=== PATIENT | male | born 1945 ===

== ENCOUNTER 2016-05-30 00:11 | Emergency (ER) | payer MEDICARE, OTHER ==
[2016-05-30 00:12] VITALS: BMI 19.3
[2016-05-30 00:16] VITALS: BP 160/104; PULSE 70; RESP 20; TEMP 98; O2SAT 95
[2016-05-30 01:21] LABS: BASO # 0.1 K/uL (0.0-0.2); BASO % 0.8 % (0.0-2.0); EOS # 0.3 K/uL (0.0-0.7); EOS % 4.1 % (0.0-4.0); HEMATOCRIT 37.5 % (35.0-51.0); LYMPH # 1.9 K/uL (1.0-4.3); LYMPH % 25.7 % (20.0-40.0); MEAN CELL VOLUME 99.8 fl (80.0-94.0); MEAN CORPUSCULAR HEMOGLOBIN 33.2 pg (27.0-31.0); MEAN CORPUSCULAR HGB CONC 33.2 g/dL (33.0-37.0); MEAN PLATELET VOLUME 7.7 fl (7.2-11.7); MONO # 0.7 K/uL (0.0-0.8); MONO % 9.9 % (0.0-10.0); NEUT # 4.4 K/uL (1.8-7.0); NEUT % 59.5 % (50.0-75.0); RED CELL DISTRIBUTION WIDTH 14.6 % (11.5-14.5); WHITE BLOOD COUNT 7.4 K/uL (4.8-10.8)
[2016-05-30 01:32] LABS: ALB/GLOB RATIO 1.3 (1.0-2.1); BILIRUBIN,TOTAL 0.7 mg/dl (0.2-1.3); CALCIUM 9.6 mg/dL (8.4-10.2); TOTAL PROTEIN 7.8 G/DL (6.3-8.2)
--- NOTE | 2016-05-30 01:38 | ED PDOC ---
HPI: Abdomen Time Seen by Provider: 05/30/16 00:23 Chief Complaint (Nursing): Abdominal Pain Chief Complaint (Provider): abdominal pain History Per: Patient History/Exam Limitations: no limitations Onset/Duration Of Symptoms: Hrs (x2) Current Symptoms Are (Timing): Gone Now Severity: Mild Location Of Pain/Discomfort: Other (left sided) Associated Symptoms: denies: Fever, Nausea, Vomiting, Diarrhea, Chest Pain Additional Complaint(s): Patient is a 70 year old male, who has a history of dementia, presents to the ED complaining of left sided abdominal pain x2 hours ago. Pain has resolved since arrival to ED. Patient has visited the ED multiple times for similar complaints. Denies nausea, vomiting, diarrhea, cough, shortness of breath, or chest pain. PMD: none Past Medical History Reviewed: Historical Data, Nursing Documentation, Vital Signs Vital Signs: Last Vital Signs Temp 98 F 05/30/16 00:13 Pulse 70 05/30/16 00:13 Resp 20 05/30/16 00:13 BP 160/104 H 05/30/16 00:13 Pulse Ox 95 05/30/16 02:41 - Medical History PMH: Anemia, Asthma, CAD, Dementia, Diverticulitis, Gastritis, HTN, Hypercholesterolemia, Chronic Kidney Disease Comment Only: CHF (?) - Surgical History Surgical History: Hernia Repair (Ventral and inguinal) - Family History Family History: States: No Known Family Hx - Social History Current smoker - smoking cessation education provided: No - Home Medications Home Medications: Ambulatory Orders Medication Instructions Recorded Donepezil HCl 5 mg PO DAILY 05/04/15 Folic Acid 1 mg PO DAILY 05/04/15 Pravastatin Sodium [Pravachol] 40 mg PO DAILY 05/04/15 Dexlansoprazole [Dexilant] 60 mg PO DAILY 03/03/16 Multivit, Iron, Min #5, FA 1 tab PO DAILY 03/03/16 [Strovite Forte Caplet] Aspirin 81 mg PO DAILY #14 tab 03/06/16 Carvedilol [Coreg] 3.125 mg PO Q12 #14 tab 03/06/16 Dicyclomine [Bentyl] 20 mg PO Q12 PRN #20 tab 05/30/16 - Allergies Allergies/Adverse Reactions: Allergies Allergy/AdvReac Type Severity Reaction Status Date / Time Penicillins Allergy RASH Verified 05/04/15 08:12 Review of Systems ROS Statement: Except As Marked, All Systems Reviewed And Found Negative Constitutional: Negative for: Fever Cardiovascular: Negative for: Chest Pain Respiratory: Negative for: Cough, Shortness of Breath Gastrointestinal: Negative for: Nausea, Vomiting, Abdominal Pain (resolved), Diarrhea Physical Exam - Reviewed Nursing Documentation Reviewed: Yes Vital Signs Reviewed: Yes - Physical Exam Appears: Positive for: Well, Non-toxic, No Acute Distress Head Exam: Positive for: ATRAUMATIC, NORMAL INSPECTION, NORMOCEPHALIC Skin: Positive for: Normal Color, Warm, DRY Eye Exam: Positive for: EOMI, Normal appearance, PERRL Neck: Positive for: Normal, Painless ROM Cardiovascular/Chest: Positive for: Regular Rate, Rhythm. Negative for: Gallop , Murmur Respiratory: Positive for: Normal Breath Sounds. Negative for: Accessory Muscle Use, Rhonchi, Respiratory Distress Gastrointestinal/Abdominal: Positive for: Normal Exam, Soft. Negative for: Tenderness, Mass, Distended, Guarding, Rebound Extremity: Positive for: Normal ROM Neurologic/Psych: Positive for: Alert, Oriented - Laboratory Results Result Diagrams: 05/30/16 00:30 05/30/16 00:30 - ECG O2 Sat by Pulse Oximetry: 95 (RA) Pulse Ox Interpretation: Normal Medical Decision Making Medical Decision Making: Time: 00:25 Impression: 70 y/o male with resolved abdominal pain Plan: CT is not indicated at this time given patients multiple visits and is currently asymptomatic EKG UDip PTT/PT UA patient remains asymptomatic. Labs reviewed and are within normal limits except creatinine, which is normal for the patient. Patient advised to follow up with PMD for kidney function. Discussed results and plan with patient who expresses understanding. Counseling was provided regarding the diagnosis and prognosis. All questions answered and there is agreement with the plan to discharge home with instructions. Patient stable for discharge. Return if symptoms persist or worsen. Scribe Attestation: Documented by Luis Felix acting as a scribe for León Coffey MD. Scribjuventino Attestation: All medical record entries made by the Scribe were at my direction and personally dictated by me. I have reviewed the chart and agree that the record accurately reflects my personal performance of the history, physical exam, medical decision making, and the department course for this patient. I have also personally directed, reviewed, and agree with the discharge instructions and disposition. Disposition - Clinical Impression Clinical Impression: Abdominal pain, LUQ - Patient ED Disposition Is Patient to be Admitted: No Counseled Patient/Family Regarding: Studies Performed, Diagnosis, Need For Followup - Disposition Referrals: Adriana Tobias MD [Primary Care Provider] - Disposition: Routine/Home Disposition Time: 02:15 Condition: STABLE Prescriptions: Dicyclomine [Bentyl] 20 mg PO Q12 PRN #20 tab PRN Reason: abdominal pain Instructions: Abdominal Pain (ED) Print Language: GEORGIAN
[2016-05-30 01:43] LABS: PARTIAL THROMBOPLASTIN TIME 29.7 SECONDS (23.3-32.5)
[2016-05-30 02:41] LABS: RBC URINE < 1 /hpf (0-3); URINE BILIRUBIN NEGATIVE (NEGATIVE); URINE BLOOD NEGATIVE (NEGATIVE); URINE COLOR STRAW (YELLOW); URINE GLUCOSE (UA) NEG (Normal); URINE KETONE NEGATIVE (NEGATIVE); URINE LEUKOCYTE ESTERASE NEG Leu/uL (Negative); URINE PROTEIN NEGATIVE (NEGATIVE); URINE UROBILINOGEN 0.2-1.0 mg/dL (0.2-1.0); WBC URINE < 1 /hpf (0-5)
--- NOTE | 2016-05-30 19:08 | CARD ---
APPROVED REPORT EKG Measurement Heart [id number] <Conclusion> Normal sinus rhythm Right bundle branch block Minimal voltage criteria for LVH, may be normal variant Abnormal ECG
== END 2016-05-30 02:50 | disposition home or self-care (01) ==
LOC: H.ER 00:11
DX: R10.12 Left upper quadrant pain (principal); E78.00 Pure hypercholesterolemia, unspecified; F03.90 Unspecified dementia, unspecified severity, without behavioral disturbance, psychotic disturbance, mood disturbance, and anxiety; I12.9 Hypertensive chronic kidney disease with stage 1 through stage 4 chronic kidney disease, or unspecified chronic kidney disease; I50.9 Heart failure, unspecified; Z79.82 Long term (current) use of aspirin; J45.909 Unspecified asthma, uncomplicated

== ENCOUNTER 2016-08-29 22:20 | Emergency (ER) | payer MEDICARE, OTHER ==
[2016-08-29 22:32] VITALS: BMI 32.3
[2016-08-29 22:34] VITALS: RESP 16; O2SAT 95
--- NOTE | 2016-08-29 23:36 | ED PDOC ---
HPI: Abdomen Time Seen by Provider: 08/29/16 22:36 Chief Complaint (Nursing): Abdominal Pain Chief Complaint (Provider): Abdominal Pain History Per: Patient History/Exam Limitations: no limitations Onset/Duration Of Symptoms: Days (x2) Outside of [place] travel?: No Current Symptoms Are (Timing): Still Present Location Of Pain/Discomfort: LUQ, LLQ Associated Symptoms: Constipation. denies: Fever, Nausea, Vomiting, Loss Of Appetite Additional Complaint(s): 71 year old male presents to ED with complaints of left sided abdominal pain x2 days and has a past medical history of HTN, gout, CHF, and chronic constipation. (+) constipation, (-) nausea, vomiting, decreased appetite, or fever. Patient notes that he has had this complaint multiple times in the past and has had many CTs taken for this. PCP: Adriana Tobias Past Medical History Reviewed: Historical Data, Nursing Documentation, Vital Signs Vital Signs: Last Vital Signs Temp 97.9 F 08/29/16 22:32 Pulse 74 08/29/16 22:32 Resp 16 08/29/16 22:32 BP 125/80 08/29/16 22:32 Pulse Ox 95 08/29/16 23:42 - Medical History PMH: Anemia, CAD, Dementia, Diverticulitis, Gastritis, HTN, Chronic Kidney Disease Denies: No Chronic Diseases, Asthma, Hypercholesterolemia Comment Only: CHF (?) - Surgical History Surgical History: Hernia Repair (Ventral and inguinal) Denies: No Surg Hx - Family History Family History: States: Unknown Family Hx - Social History Alcohol: Occasional - Home Medications Home Medications: Ambulatory Orders Medication Instructions Recorded Donepezil HCl 5 mg PO DAILY 05/04/15 Folic Acid 1 mg PO DAILY 05/04/15 Pravastatin Sodium [Pravachol] 40 mg PO DAILY 05/04/15 Dexlansoprazole [Dexilant] 60 mg PO DAILY 03/03/16 Multivit,Iron,Min 5/Folic Acid 1 tab PO DAILY 03/03/16 [Strovite Forte Caplet] Aspirin 81 mg PO DAILY #14 tab 03/06/16 Carvedilol [Coreg] 3.125 mg PO Q12 #14 tab 03/06/16 Dicyclomine [Bentyl] 20 mg PO Q12 PRN #20 tab 05/30/16 Polyethylene Glycol 3350 [Miralax] 17 g PO QAM PRN #7 pkg 08/30/16 - Allergies Allergies/Adverse Reactions: Allergies Allergy/AdvReac Type Severity Reaction Status Date / Time Penicillins Allergy RASH Verified 05/04/15 08:12 Review of Systems ROS Statement: Except As Marked, All Systems Reviewed And Found Negative Constitutional: Negative for: Fever Gastrointestinal: Positive for: Abdominal Pain (left sided abdominal pain), Constipation. Negative for: Nausea, Vomiting, Other (decreased appetite) Physical Exam - Reviewed Nursing Documentation Reviewed: Yes Vital Signs Reviewed: Yes - Physical Exam Appears: Positive for: Non-toxic, No Acute Distress Head Exam: Positive for: ATRAUMATIC Skin: Positive for: Normal Color, Warm, Dry Eye Exam: Positive for: Normal appearance ENT: Positive for: Normal ENT Inspection Neck: Positive for: Normal, Painless ROM Cardiovascular/Chest: Positive for: Regular Rate, Rhythm. Negative for: Murmur Respiratory: Positive for: Normal Breath Sounds. Negative for: Respiratory Distress Gastrointestinal/Abdominal: Positive for: Distended (mild abdominal distension) . Negative for: Normal Exam Back: Positive for: Normal Inspection Extremity: Positive for: Normal ROM. Negative for: Deformity Neurologic/Psych: Positive for: Alert, Oriented. Negative for: Motor/Sensory Deficits - Laboratory Results Result Diagrams: 08/29/16 23:38 08/29/16 23:38 - ECG O2 Sat by Pulse Oximetry: 95 (RA) Pulse Ox Interpretation: Normal Medical Decision Making Medical Decision Makin Initial impression: abdominal pain in setting of chronic constipation Initial plan: * EKG * Labs * Lipase * XR ABD W/ CHEST * Bentyl 20mg PO * UA * Re-eval 0000 Patient states that his symptoms have completely resolved after a bowel movement. Upon re-evaluation, patient is feeling much better and is medically stable and ready for discharge. Counseling has been provided and patient is in agreement. Return if symptoms persist or acutely worsen. XR ABD W/ CHEST Normal chest Normal abdomen Scribe Attestation: Documented by Yolanda Grove acting as a scribe for León Coffey MD. Scribe Attestation: All medical record entries made by the Scribe were at my direction and personally dictated by me. I have reviewed the chart and agree that the record accurately reflects my personal performance of the history, physical exam, medical decision making, and the department course for this patient. I have also personally directed, reviewed, and agree with the discharge instructions and disposition. Disposition - Clinical Impression Clinical Impression: Abdominal pain, Constipation - Disposition Disposition: Routine/Home Disposition Time: 00:00 Condition: STABLE Prescriptions: Polyethylene Glycol 3350 [Miralax] 17 g PO QAM PRN #7 pkg PRN Reason: Constipation Instructions: Constipation (ED) Print Language: SERBIAN
[2016-08-29 23:41] LABS: BASO # 0.1 K/uL (0.0-0.2); BASO % 0.9 % (0.0-2.0); EOS # 0.2 K/uL (0.0-0.7); EOS % 2.4 % (0.0-4.0); HEMOGLOBIN 12.6 g/dL (12.0-18.0); LYMPH # 1.4 K/uL (1.0-4.3); LYMPH % 17.1 % (20.0-40.0); MEAN CELL VOLUME 100.1 fl (80.0-94.0); MEAN CORPUSCULAR HEMOGLOBIN 32.9 pg (27.0-31.0); MEAN CORPUSCULAR HGB CONC 32.8 g/dL (33.0-37.0); MEAN PLATELET VOLUME 7.2 fl (7.2-11.7); MONO # 0.9 K/uL (0.0-0.8); MONO % 10.4 % (0.0-10.0); NEUT # 5.7 K/uL (1.8-7.0); NEUT % 69.2 % (50.0-75.0); NRBC % 0.1 % (0.0-0.0); RBC 3.82 Mil/uL (4.40-5.90); WHITE BLOOD COUNT 8.3 K/uL (4.8-10.8)
[2016-08-29 23:54] LABS: ALB/GLOB RATIO 1.2 (1.0-2.1); ALBUMIN 4.1 g/dL (3.5-5.0); ALT/SGPT 35 U/L (21-72); AST/SGOT 35 U/L (17-59); BLOOD UREA NITROGEN 21 mg/dl (9-20); CALCIUM 9.9 mg/dL (8.4-10.2); GFR AFRICAN-AMERICAN > 60; GFR NON-AFRICAN AMERICAN 54; LIPASE 167 U/L (23-300)
[2016-08-29 23:56] LABS: SQUAMOUS EPITHIAL < 1 /hpf (0-5); URINE BACTERIA RARE (<OCC); URINE BILIRUBIN NEGATIVE (NEGATIVE); URINE BLOOD NEGATIVE (NEGATIVE); URINE CLARITY CLEAR (Clear); URINE COLOR YELLOW (YELLOW); URINE GLUCOSE (UA) NEG (Normal); URINE LEUKOCYTE ESTERASE NEG Leu/uL (Negative); URINE NITRATE NEGATIVE (NEGATIVE); URINE PROTEIN NEGATIVE (NEGATIVE); URINE UROBILINOGEN 0.2-1.0 mg/dL (0.2-1.0)
[2016-08-30 04:58] VITALS: BP 122/78; PULSE 86; TEMP 98.6
--- NOTE | 2016-08-30 11:17 | RAD ---
HISTORY: Abdominal pain COMPARISON: CT abdomen and pelvis from 03/02/2016 FINDINGS: BOWEL: The bowel gas pattern is nonspecific. There are no large differential air-fluid levels. There are small air-fluid levels in the right abdomen and left upper quadrant. No free intraperitoneal air. BONES: Normal. OTHER FINDINGS: The lungs are well inflated and clear. There is mild cardiomegaly. Atherosclerotic aortic arch calcifications are present. . IMPRESSION: Nonspecific bowel gas pattern. Small air-fluid levels in the abdomen could represent ileus or nonspecific enteritis. No evidence of bowel obstruction.
--- NOTE | 2016-08-30 18:25 | CARD ---
APPROVED REPORT EKG Measurement Heart [id number] <Conclusion> Sinus rhythm with occasional premature ventricular complexes Right bundle branch block Moderate voltage criteria for LVH, may be normal variant Abnormal ECG
== END 2016-08-30 03:00 | disposition home or self-care (01) ==
LOC: H.ER 22:20
DX: K59.09 Other constipation (principal); F03.90 Unspecified dementia, unspecified severity, without behavioral disturbance, psychotic disturbance, mood disturbance, and anxiety; I13.0 Hypertensive heart and chronic kidney disease with heart failure and stage 1 through stage 4 chronic kidney disease, or unspecified chronic kidney disease; Z79.82 Long term (current) use of aspirin

== ENCOUNTER 2016-11-06 01:41 | Observation (INO) | payer MEDICARE, OTHER ==
[2016-11-06 01:41] VITALS: BMI 32.3
[2016-11-06] MEDS ORDERED: Sodium Chloride 0.9% 1,000 ML IV STA (02:12)
[2016-11-06 02:37] LABS: BASO # 0.1 K/uL (0.0-0.2); EOS # 0.2 K/uL (0.0-0.7); EOS % 2.7 % (0.0-4.0); HEMATOCRIT 36.9 % (35.0-51.0); LYMPH # 1.8 K/uL (1.0-4.3); LYMPH % 22.5 % (20.0-40.0); MEAN CELL VOLUME 101.4 fl (80.0-94.0); MEAN CORPUSCULAR HEMOGLOBIN 33.4 pg (27.0-31.0); MEAN CORPUSCULAR HGB CONC 32.9 g/dL (33.0-37.0); MEAN PLATELET VOLUME 7.4 fl (7.2-11.7); MONO # 0.9 K/uL (0.0-0.8); MONO % 10.5 % (0.0-10.0); NEUT # 5.2 K/uL (1.8-7.0); NEUT % 63.3 % (50.0-75.0); RED CELL DISTRIBUTION WIDTH 14.6 % (11.5-14.5); WHITE BLOOD COUNT 8.2 K/uL (4.8-10.8)
[2016-11-06] MEDS ORDERED: Iohexol 240 (50 ml) PO ONE (02:37)
[2016-11-06 02:57] LABS: GLUCOSE,RANDOM 114 mg/dL (75-110)
[2016-11-06 02:58] LABS: ALB/GLOB RATIO 1.2 (1.0-2.1); AST/SGOT 41 U/L (17-59); BILIRUBIN,TOTAL 0.5 mg/dl (0.2-1.3); BLOOD UREA NITROGEN 20 mg/dl (9-20); CARBON DIOXIDE 27 mmol/L (22-30); CHLORIDE 104 mmol/L (98-107); GFR AFRICAN-AMERICAN > 60; POTASSIUM 4.1 MMOL/L (3.6-5.0); SODIUM 140 mmol/l (132-148); TOTAL PROTEIN 7.4 G/DL (6.3-8.2)
[2016-11-06 02:59] LABS: ALKALINE PHOSPHATASE 63 U/L (38-126); ALT/SGPT 49 U/L (21-72); LIPASE 134 U/L (23-300)
--- NOTE | 2016-11-06 03:49 | ED PDOC ---
HPI: Abdomen Time Seen by Provider: 11/06/16 02:00 Chief Complaint (Nursing): Abdominal Pain Chief Complaint (Provider): Abdominal Pain History Per: Patient History/Exam Limitations: no limitations Onset/Duration Of Symptoms: Hrs (earlier today) Outside of [place] travel?: No Current Symptoms Are (Timing): Still Present Location Of Pain/Discomfort: LLQ Associated Symptoms: Diarrhea. denies: Fever, Vomiting Additional Complaint(s): 71 year old male presents to ED with complaints of LLQ pain since earlier today and has a past medical history of CAD, Hypertension, leukemia, and renal disease. (+) diarrhea x5-6 episodes, (-) fever or vomiting. PCP: Adriana Tobias Past Medical History Reviewed: Historical Data, Nursing Documentation, Vital Signs Vital Signs: Last Vital Signs Temp 97.7 F 11/07/16 08:04 Pulse 55 L 11/07/16 09:37 Resp 20 11/07/16 08:04 BP 158/70 H 11/07/16 09:37 Pulse Ox 97 11/07/16 08:04 - Medical History PMH: Anemia, CAD, Dementia, Diverticulitis, Gastritis, HTN, Chronic Kidney Disease Denies: Asthma, Hypercholesterolemia Comment Only: CHF (?) - Surgical History Surgical History: Hernia Repair (Ventral and inguinal) - Family History Family History: States: Unknown Family Hx - Social History Current smoker - smoking cessation education provided: No Ex-Smoker (has not smoked in the last 12 months): No Alcohol: None Drugs: Denies - Home Medications Home Medications: Ambulatory Orders Medication Instructions Recorded Albuterol HFA [Ventolin HFA 90 1 puff PO PRN PRN 11/06/16 mcg/actuation (8 g)] Aspirin [Aspirin Chewable] 1 tab PO DAILY 11/06/16 Budesonide/Formoterol Fumarate 1 puff PO DAILY 11/06/16 [Symbicort 160-4.5 Mcg Inhaler] Carvedilol [Coreg] 3.125 mg PO DAILY 11/06/16 Dasatinib [Sprycel] 100 mg PO DAILY 11/06/16 Donepezil HCl [Aricept] 1 tab PO DAILY 11/06/16 Ferrous Sulfate [Feosol] 1 tab PO DAILY 11/06/16 Folic Acid 1 tab PO DAILY 11/06/16 Furosemide [Lasix] 1 tab PO DAILY 11/06/16 Linaclotide [Linzess] 1 tab PO DAILY 11/06/16 Losartan Potassium 1 tab PO DAILY 11/06/16 Mv,Min10/Folic Acid/D3/Ala/Lut 1 tab PO DAILY 11/06/16 [Strovite One Caplet] Nitroglycerin [Nitrostat] 1 tab SL PRN PRN 11/06/16 Omeprazole 1 tab PO DAILY 11/06/16 Simvastatin [Zocor] 1 tab PO DAILY 11/06/16 Ciprofloxacin 500 mg PO BID #14 ml 11/07/16 Metronidazole [Flagyl] 500 mg PO TID #21 tablet 11/07/16 - Allergies Allergies/Adverse Reactions: Allergies Allergy/AdvReac Type Severity Reaction Status Date / Time Penicillins Allergy RASH Verified 11/06/16 01:51 Review of Systems ROS Statement: Except As Marked, All Systems Reviewed And Found Negative Constitutional: Negative for: Fever Gastrointestinal: Positive for: Abdominal Pain (LLQ), Diarrhea. Negative for: Vomiting Physical Exam - Reviewed Nursing Documentation Reviewed: Yes Vital Signs Reviewed: Yes - Physical Exam Appears: Positive for: Non-toxic, No Acute Distress Skin: Positive for: Normal Color, Warm, Dry Eye Exam: Positive for: Normal appearance ENT: Positive for: Normal ENT Inspection Neck: Positive for: Normal, Painless ROM, Supple Cardiovascular/Chest: Positive for: Regular Rate, Rhythm. Negative for: Murmur Respiratory: Positive for: Normal Breath Sounds. Negative for: Respiratory Distress Gastrointestinal/Abdominal: Positive for: Soft, Tenderness (LLQ tenderness) Back: Positive for: Normal Inspection Extremity: Positive for: Normal ROM. Negative for: Deformity Neurologic/Psych: Positive for: Alert, Oriented. Negative for: Motor/Sensory Deficits - Laboratory Results Result Diagrams: 11/07/16 04:50 11/06/16 02:32 - ECG ECG Rhythm: Positive for: Sinus Bradycardia, Right Bundle Branch Block. Negative for: ST/T Changes Rate: 57 O2 Sat by Pulse Oximetry: 98 (RA) Pulse Ox Interpretation: Normal Medical Decision Making Medical Decision Makin Initial impression: abdominal pain rule out diverticulitis Initial plan: * CTA A/P * Labs * Lipase * Iohexol 50mL PO * NS IV * Zofran Inj 4mg IV * Urine C&S * ED OBS ADMISSION * UA All further documentation will take place in ED OBS section of chart. 06:[address] Medel who agrees to admit patient. Scribe Attestation: Documented by Yolanda Grove and Montse Velazquez acting as scribes for Halima Flowers MD. Scribe Attestation: All medical record entries made by the Scribe were at my direction and personally dictated by me. I have reviewed the chart and agree that the record accurately reflects my personal performance of the history, physical exam, medical decision making, and the department course for this patient. I have also personally directed, reviewed, and agree with the discharge instructions and disposition. ED OBSERVATION Date of observation admission: 11/06/16 Time of observation admission: 02:38 - Observation admission statement Patient is being placed in observation because:: CT pending - Goals of Observation Goals of observation are:: CT results - Progress Note Progress Note: 11/06/16 04:03 Patient resting comfortably. Vitals stable. 11/06/16 05:44 CT FINDINGS Lower thorax: The heart as visualized appears mildly to moderately enlarged. There is minimal bibasilar atelectasis. Tiny hiatal hernia. ABDOMEN: Liver: There is a diffuse decrease in hepatic parenchymal density, consistent with fatty infiltration. There are no focal liver lesions present. Gallbladder and bile ducts: Gallbladder is decompressed. No calcified stones. No ductal dilation. Pancreas: Pancreas is slightly atrophic and slightly fatty replaced. No ductal dilation. Spleen: The spleen is normal. Adrenals: The adrenal glands are normal. Kidneys and ureters: There is a small left upper pole renal cyst. Small right mid pole renal cyst. There is no evidence of hydronephrosis. Stomach and bowel: Some of the more proximal small bowel loops are slightly distended measuring up to 3 CM whereas some of the more distal loops are relatively decompressed measuring closer to 1.5 CM. Unclear if this represents a distention effect of the oral contrast in the proximal loops versus an ileus or perhaps even early or mild partial small bowel obstruction. Please correlate clinically and if indicated followup can be obtained. The stomach is normal. No mucosal thickening. Appendix: A normal appendix is identified. PELVIS: Bladder: Bladder is decompressed. Reproductive: The prostate is top normal in size measuring 4.8 CM transverse. ABDOMEN and PELVIS: Intraperitoneal space: There is no evidence of free intraperitoneal fluid. There is no free intraperitoneal air. Bones/joints: There are moderate degenerative changes present. There is mild diffuse osteopenia. No acute fracture. No dislocation. Soft tissues: Unremarkable. Vasculature: The aorta demonstrates moderate atherosclerotic calcification. No abdominal aortic aneurysm. Lymph nodes: There is no evidence of lymphadenopathy. IMPRESSION: 1. Some of the more proximal small bowel loops are slightly distended measuring up to 3 CM whereas some of the more distal loops are relatively decompressed measuring closer to 1.5 CM. Unclear if this represents a distention effect of the oral contrast in the proximal loops versus an ileus or perhaps even early or mild partial small bowel obstruction. Please correlate clinically and if indicated followup can be obtained. 2. Additional incidental and/or chronic findings as described. 11/06/16 05:54 Discussed findings with patient. Calling surgery animal nutrition consultant (Rebekah). No answer 11/06/16 06:[address] Welch again, no answer. 11/06/16 06:[address] Welch. No answer. 11/06/16 06:50 Dr. Welch has called back. Recommends calling the surgical services director and medicine animal nutrition consultant. Patient will be admitted OBS MED/SURG. Will call Dr. Medel (medicine animal nutrition consultant). Disposition - Clinical Impression Clinical Impression: Small bowel obstruction - Patient ED Disposition Is Patient to be Admitted: Yes Counseled Patient/Family Regarding: Studies Performed, Diagnosis - Disposition Disposition Time: 02:10 Condition: FAIR - Pt Status Changed To: Hospital Disposition Of: Observation
[2016-11-06] MEDS ORDERED: Sodium Chloride 0.9% 50 ML IV ONE (04:12)
[2016-11-06] MEDS ORDERED: Iohexol 300 100 ML IJ ONE (04:12)
--- NOTE | 2016-11-06 05:45 | CT ---
EXAM: CT Abdomen and Pelvis With Intravenous Contrast CLINICAL HISTORY: 71 years old, male; Pain; Abdominal pain; Generalized; Additional info: Diarrhgea abdominal pain TECHNIQUE: Axial computed tomography images of the abdomen and pelvis with intravenous contrast. All CT scans at this facility use one or more dose reduction techniques, viz.: automated exposure control; ma/kV adjustment per patient size (including targeted exams where dose is matched to indication; i.e. head); or iterative reconstruction technique. Coronal and sagittal reformatted images were created and reviewed. CONTRAST: 95 mL of [id number] administered intravenously. COMPARISON: CT - ABD PELVIS PO IV CONTRAST 12/10/2014 12:49:01 PM FINDINGS: Lower thorax: The heart as visualized appears mildly to moderately enlarged. There is minimal bibasilar atelectasis. Tiny hiatal hernia. ABDOMEN: Liver: There is a diffuse decrease in hepatic parenchymal density, consistent with fatty infiltration. There are no focal liver lesions present. Gallbladder and bile ducts: Gallbladder is decompressed. No calcified stones. No ductal dilation. Pancreas: Pancreas is slightly atrophic and slightly fatty replaced. No ductal dilation. Spleen: The spleen is normal. Adrenals: The adrenal glands are normal. Kidneys and ureters: There is a small left upper pole renal cyst. Small right mid pole renal cyst. There is no evidence of hydronephrosis. Stomach and bowel: Some of the more proximal small bowel loops are slightly distended measuring up to 3 CM whereas some of the more distal loops are relatively decompressed measuring closer to 1.5 CM. Unclear if this represents a distention effect of the oral contrast in the proximal loops versus an ileus or perhaps even early or mild partial small bowel obstruction. Please correlate clinically and if indicated followup can be obtained. The stomach is normal. No mucosal thickening. Appendix: A normal appendix is identified. PELVIS: Bladder: Bladder is decompressed. Reproductive: The prostate is top normal in size measuring 4.8 CM transverse. ABDOMEN and PELVIS: Intraperitoneal space: There is no evidence of free intraperitoneal fluid. There is no free intraperitoneal air. Bones/joints: There are moderate degenerative changes present. There is mild diffuse osteopenia. No acute fracture. No dislocation. Soft tissues: Unremarkable. Vasculature: The aorta demonstrates moderate atherosclerotic calcification. No abdominal aortic aneurysm. Lymph nodes: There is no evidence of lymphadenopathy. IMPRESSION: 1. Some of the more proximal small bowel loops are slightly distended measuring up to 3 CM whereas some of the more distal loops are relatively decompressed measuring closer to 1.5 CM. Unclear if this represents a distention effect of the oral contrast in the proximal loops versus an ileus or perhaps even early or mild partial small bowel obstruction. Please correlate clinically and if indicated followup can be obtained. 2. Additional incidental and/or chronic findings as described.
[2016-11-06 07:55] LABS: RBC URINE 1 /hpf (0-3); URINE BILIRUBIN NEGATIVE (NEGATIVE); URINE BLOOD NEGATIVE (NEGATIVE); URINE COLOR STRAW (YELLOW); URINE GLUCOSE (UA) NEG (Normal); URINE KETONE NEGATIVE (NEGATIVE); URINE LEUKOCYTE ESTERASE NEG Leu/uL (Negative); URINE PROTEIN NEGATIVE (NEGATIVE); URINE UROBILINOGEN 0.2-1.0 mg/dL (0.2-1.0); WBC URINE < 1 /hpf (0-5)
--- NOTE | 2016-11-06 09:24 | CP.PCM.CON ---
<Savage Baker - Last Filed: 11/06/16 09:36> History of Present Illness - History of Present Illness History of Present Illness: General Surgery 71M pmhx CAD, HTN, leukemia, presented to [facility] ED with Left middle, LLQ abdominal pain that started since 2AM this morning. Pt had a similar episode 7mo ago which resolved spontaneously. Currently resting in the ED pain is better since arrival. Pt had 5-6 episodes of non-bloody diarrhea since this morning. Currently denies CP/SOB F/C/SANCHEZ & vomiting PMH: see above PSH: Umbilical hernia repair, Right Inguinal hernia repair ALL: PCN SocialHx: 1 cup of coffee and 1 cigar per day. denies etoh or illicit drug use Review of Systems - Review of Systems All systems: reviewed and no additional remarkable complaints except - Constitutional Constitutional: As Per HPI Past Patient History - Tetanus Immunizations Tetanus Immunization: Unknown - Past Medical History & Family History Past Medical History?: Yes - Past Social History Alcohol: None Drugs: Denies - CARDIAC Hx Cardiac Disorders: Yes (htn,cad) - PULMONARY Hx Respiratory Disorders: No - NEUROLOGICAL Hx Neurological Disorder: No - HEENT Hx HEENT Problems: No - RENAL Hx Chronic Kidney Disease: Yes - ENDOCRINE/METABOLIC Hx Endocrine Disorders: No - HEMATOLOGICAL/ONCOLOGICAL Hx Blood Disorders: Yes (anemia,leukemia) - INTEGUMENTARY Hx Dermatological Problems: No - MUSCULOSKELETAL/RHEUMATOLOGICAL Hx Musculoskeletal Disorders: No - GASTROINTESTINAL Hx Diverticulitis: Yes Hx Gastritis: Yes - GENITOURINARY/GYNECOLOGICAL Hx Genitourinary Disorders: No - PSYCHIATRIC Hx Psychophysiologic Disorder: No - SURGICAL HISTORY Hx Surgeries: Yes Hx Herniorrhaphy: Yes (x2) Other/Comment: inguinal and umbilical hernia repair - ANESTHESIA Hx Anesthesia: Yes Hx Anesthesia Reactions: No Hx Malignant Hyperthermia: No Meds Allergies/Adverse Reactions: Allergies Allergy/AdvReac Type Severity Reaction Status Date / Time Penicillins Allergy RASH Verified 11/06/16 01:51 Physical Exam - Constitutional Appears: Non-toxic, No Acute Distress - Head Exam Head Exam: ATRAUMATIC - Eye Exam Eye Exam: EOMI - ENT Exam ENT Exam: Mucous Membranes Moist - Cardiovascular Exam Cardiovascular Exam: +S1, +S2 - GI/Abdominal Exam GI & Abdominal Exam: Distended, Soft, Tenderness. absent: Firm, Guarding, Hernia, Rebound, Rigid Additional comments: TTP in LLQ. midline incision scar from hernia repair fully healed. voluntary guarding during palpation. - Extremities Exam Extremities exam: Negative for: pedal edema - Neurological Exam Neurological exam: Alert, Oriented x3 - Psychiatric Exam Psychiatric exam: Normal Affect - Skin Skin Exam: Normal Color Results - Vital Signs Recent Vital Signs: Last Vital Signs Temp 98.5 F 11/06/16 08:37 Pulse 58 L 11/06/16 08:37 Resp 18 11/06/16 08:37 BP 133/68 11/06/16 08:37 Pulse Ox 98 11/06/16 07:41 - Labs Result Diagrams: 11/06/16 02:32 11/06/16 02:32 Labs: Laboratory Results - last 24 hr 11/06/16 07:30 Urine Color Straw Urine Clarity Clear Urine pH 6.0 Ur Specific [place] 1.048 H Urine Protein Negative Urine Glucose (UA) Neg Urine Ketones Negative Urine Blood Negative Urine Nitrate Negative Urine Bilirubin Negative Urine Urobilinogen 0.2-1.0 Ur Leukocyte Esterase Neg Urine RBC (Auto) 1 Urine Microscopic WBC < 1 Ur Squamous Epith Cells 1 Assessment & Plan - Assessment and Plan (Free Text) Assessment: 71M Abdominal Pain Plan: - NPO - IVF/Abx - GI/DVT ppx - Pain control - serial abdominal exams - further recs per Dr. Melia Baker PGY1 <Bernabe Cárdenas - Last Filed: 11/06/16 18:56> Meds - Medications Medications: Current Medications Albuterol (Ventolin Hfa 90 Mcg/Actuation (8 G)) 1 puff INH RQ6 PRN PRN Reason: Shortness of Breath Aspirin (Aspirin Chewable) 81 mg PO DAILY [facility] Carvedilol (Coreg) 3.125 mg PO DAILY [facility] Donepezil HCl (Aricept) 5 mg PO DAILY [facility] Enoxaparin Sodium (Lovenox) 40 mg SC DAILY [facility] PRN Reason: Protocol Famotidine (Pepcid) 20 mg IVP Q12 [facility] Ferrous Sulfate (Feosol) 325 mg PO DAILY [facility] Folic Acid (Folic Acid) 1 mg PO DAILY [facility] Furosemide (Lasix) 20 mg PO DAILY [facility] Home Med (Dasatinib [Sprycel]) 100 mg PO DAILY [facility] Dextrose/Lactated Ringer's (Dextrose 5%/Lactated Ringer's) 1,000 mls @ 125 mls/ hr IV .Q8H [facility] Stop: 11/07/16 12:33 Last Admin: 11/06/16 10:00 Dose: 125 mls/hr Ciprofloxacin (Cipro 400mg/200ml Dsw) 400 mg in 200 mls @ 200 mls/hr IVPB Q12 [facility] Losartan Potassium (Cozaar) 50 mg PO DAILY [facility] Metronidazole (Flagyl) 500 mg PO Q12 [facility] Pravastatin Sodium (Pravachol) 20 mg PO DAILY [facility] Results - Vital Signs Recent Vital Signs: Last Vital Signs Temp 97.6 F 11/06/16 15:47 Pulse 52 L 11/06/16 15:47 Resp 18 11/06/16 15:47 BP 163/81 H 11/06/16 15:47 Pulse Ox 98 11/06/16 15:47 - Labs Result Diagrams: 11/06/16 02:32 11/06/16 02:32 Labs: Laboratory Results - last 24 hr 11/06/16 07:30 Urine Color Straw Urine Clarity Clear Urine pH 6.0 Ur Specific [place] 1.048 H Urine Protein Negative Urine Glucose (UA) Neg Urine Ketones Negative Urine Blood Negative Urine Nitrate Negative Urine Bilirubin Negative Urine Urobilinogen 0.2-1.0 Ur Leukocyte Esterase Neg Urine RBC (Auto) 1 Urine Microscopic WBC < 1 Ur Squamous Epith Cells 1 Attending/Attestation - Attestation I have personally seen and examined this patient.: Yes I have fully participated in the care of the patient.: Yes I have reviewed all pertinent clinical information: Yes Notes (Text): 11/06/16 18:55 Pt was seen and examined at bedside Agree with above note and assessment Pt with abdominal pain and diarrhea Abdomen : soft, nontender, Ass: Gastroenteritis, Less likely PSBO Plan : NPO, IVF Serial abdominal exam IV antibiotics We will f.u in am Plan d.w pt in detail Risk and benefit explained in detail.
[2016-11-06] MEDS ORDERED: Sodium Chloride 0.9% 1,000 ML IV SCH (09:45)
[2016-11-06] MEDS: Dextrose 5%/Lactated Ringer's 1,000 ML IV SCH ×2 (10:00→21:00)
--- NOTE | 2016-11-06 10:10 | CP.PCM.HP ---
History of Present Illness - History of Present Illness History of Present Illness: This is a 71 y/o male admitted for vague abdominal pain and diarrhea since after dinner last night. He denies any fever or vomiting. CT scan showed some ileus and distention. he has a hx of ventral hernia and inguinal hernia repair few years ago. medical Hx HTn dementia? CKD 2 asthma constipation. Present on Admission - Present on Admission Any Indicators Present on Admission: No History of DVT/PE: No Urinary Catheter: No Decubitus Ulcer Present: No Review of Systems - Gastrointestinal Gastrointestinal: Abdominal Pain Past Patient History - Tetanus Immunizations Tetanus Immunization: Unknown - Past Medical History & Family History Past Medical History?: Yes - Past Social History Alcohol: None Drugs: Denies - CARDIAC Hx Cardiac Disorders: Yes (htn,cad) - PULMONARY Hx Respiratory Disorders: No - NEUROLOGICAL Hx Neurological Disorder: No - HEENT Hx HEENT Problems: No - RENAL Hx Chronic Kidney Disease: Yes - ENDOCRINE/METABOLIC Hx Endocrine Disorders: No - HEMATOLOGICAL/ONCOLOGICAL Hx Blood Disorders: Yes (anemia,leukemia) - INTEGUMENTARY Hx Dermatological Problems: No - MUSCULOSKELETAL/RHEUMATOLOGICAL Hx Musculoskeletal Disorders: No - GASTROINTESTINAL Hx Diverticulitis: Yes Hx Gastritis: Yes - GENITOURINARY/GYNECOLOGICAL Hx Genitourinary Disorders: No - PSYCHIATRIC Hx Psychophysiologic Disorder: No - SURGICAL HISTORY Hx Surgeries: Yes Hx Herniorrhaphy: Yes (x2) Other/Comment: inguinal and umbilical hernia repair - ANESTHESIA Hx Anesthesia: Yes Hx Anesthesia Reactions: No Hx Malignant Hyperthermia: No Meds Allergies/Adverse Reactions: Allergies Allergy/AdvReac Type Severity Reaction Status Date / Time Penicillins Allergy RASH Verified 11/06/16 01:51 Physical Exam - Head Exam Head Exam: NORMAL INSPECTION - Eye Exam Eye Exam: Normal appearance - ENT Exam ENT Exam: Mucous Membranes Moist - Neck Exam Neck exam: Positive for: Normal Inspection - Respiratory Exam Respiratory Exam: Clear to Auscultation Bilateral - Cardiovascular Exam Cardiovascular Exam: REGULAR RHYTHM - GI/Abdominal Exam GI & Abdominal Exam: Diminished Bowel Sounds, Tenderness - Psychiatric Exam Psychiatric exam: Normal Mood Results - Vital Signs Recent Vital Signs: Last Vital Signs Temp 98.5 F 11/06/16 08:37 Pulse 58 L 11/06/16 08:37 Resp 18 11/06/16 08:37 BP 133/68 11/06/16 08:37 Pulse Ox 98 11/06/16 07:41 - Labs Result Diagrams: 11/07/16 04:50 11/06/16 02:32 Labs: Laboratory Results - last 24 hr 11/06/16 07:30 Urine Color Straw Urine Clarity Clear Urine pH 6.0 Ur Specific [place] 1.048 H Urine Protein Negative Urine Glucose (UA) Neg Urine Ketones Negative Urine Blood Negative Urine Nitrate Negative Urine Bilirubin Negative Urine Urobilinogen 0.2-1.0 Ur Leukocyte Esterase Neg Urine RBC (Auto) 1 Urine Microscopic WBC < 1 Ur Squamous Epith Cells 1 Assessment & Plan (1) Colitis Status: Acute (2) Hypertension Status: Acute - Assessment and Plan (Free Text) Plan: NPO hydrate GI and surgical eval start iv antibiotics cont meds observe and advance diet
[2016-11-06] MEDS ORDERED: Albuterol HFA 90 mcg/actuation (8 g) INH PRN (13:12)
[2016-11-06] MEDS ORDERED: metroNIDAZOLE 500mg/100ml NS 100 ML IVPB SCH (17:00)
[2016-11-06] MEDS: Enoxaparin 40 mg Syringe SC SCH (19:32)
[2016-11-06] MEDS: Ciprofloxacin 400mg/200ml D5W 400 MG/200 ML BAG IVPB SCH (20:36)
[2016-11-07 00:28] VITALS: RESP 20
[2016-11-07 05:48] LABS: HEMATOCRIT 32.6 % (35.0-51.0); MEAN CELL VOLUME 101.4 fl (80.0-94.0); MEAN CORPUSCULAR HEMOGLOBIN 34.2 pg (27.0-31.0); MEAN CORPUSCULAR HGB CONC 33.7 g/dL (33.0-37.0); RED CELL DISTRIBUTION WIDTH 14.4 % (11.5-14.5); WHITE BLOOD COUNT 4.4 K/uL (4.8-10.8)
[2016-11-07] MEDS: Dextrose 5%/Lactated Ringer's 1,000 ML IV SCH (06:40)
[2016-11-07 08:04] VITALS: TEMP 97.7
[2016-11-07] MEDS: Ciprofloxacin 400mg/200ml D5W 400 MG/200 ML BAG IVPB SCH (08:10)
[2016-11-07] MEDS: Enoxaparin 40 mg Syringe SC SCH (08:10)
--- NOTE | 2016-11-07 08:58 | CP.PCM.DIS ---
Provider - Provider Date of Admission: 11/06/16 02:38 Attending physician: Harry Medel MD Primary care physician: Adriana Tobias MD Time Spent in preparation of Discharge (in minutes): 30 Diagnosis - Discharge Diagnosis (1) Colitis Status: Acute (2) Hypertension Status: Acute Hospital Course - Lab Results Lab Results: Most Recent Lab Values WBC 4.4 K/uL (4.8-10.8) L 11/07/16 04:50 RBC 3.22 Mil/uL (4.40-5.90) L 11/07/16 04:50 Hgb 11.0 g/dL (12.0-18.0) L 11/07/16 04:50 Hct 32.6 % (35.0-51.0) L 11/07/16 04:50 MCV 101.4 fl (80.0-94.0) H 11/07/16 04:50 MCH 34.2 pg (27.0-31.0) H 11/07/16 04:50 MCHC 33.7 g/dL (33.0-37.0) 11/07/16 04:50 RDW 14.4 % (11.5-14.5) 11/07/16 04:50 Plt Count 254 K/uL (130-400) 11/07/16 04:50 MPV 7.4 fl (7.2-11.7) 11/06/16 02:32 Neut % (Auto) 63.3 % (50.0-75.0) 11/06/16 02:32 Lymph % (Auto) 22.5 % (20.0-40.0) 11/06/16 02:32 [place] % (Auto) 10.5 % (0.0-10.0) H 11/06/16 02:32 Eos % (Auto) 2.7 % (0.0-4.0) 11/06/16 02:32 Baso % (Auto) 1.0 % (0.0-2.0) 11/06/16 02:32 Neut # 5.2 K/uL (1.8-7.0) 11/06/16 02:32 Lymph # 1.8 K/uL (1.0-4.3) 11/06/16 02:32 [place] # 0.9 K/uL (0.0-0.8) H 11/06/16 02:32 Eos # 0.2 K/uL (0.0-0.7) 11/06/16 02:32 Baso # 0.1 K/uL (0.0-0.2) 11/06/16 02:32 Sodium 140 mmol/l (132-148) 11/06/16 02:32 Potassium 4.1 MMOL/L (3.6-5.0) 11/06/16 02:32 Chloride 104 mmol/L (98-107) 11/06/16 02:32 Carbon Dioxide 27 mmol/L (22-30) 11/06/16 02:32 Anion Gap 13 (10-20) 11/06/16 02:32 BUN 20 mg/dl (9-20) 11/06/16 02:32 Creatinine 1.2 mg/dL (0.8-1.5) 11/06/16 02:32 Est GFR ( Amer) > 60 11/06/16 02:32 Est GFR (Non-Af Amer) 60 11/06/16 02:32 Random Glucose 114 mg/dL (75-110) H 11/06/16 02:32 Calcium 9.0 mg/dL (8.4-10.2) 11/06/16 02:32 Total Bilirubin 0.5 mg/dl (0.2-1.3) 11/06/16 02:32 AST 41 U/L (17-59) 11/06/16 02:32 ALT 49 U/L (21-72) 11/06/16 02:32 Alkaline Phosphatase 63 U/L (38-126) 11/06/16 02:32 Total Protein 7.4 G/DL (6.3-8.2) 11/06/16 02:32 Albumin 4.0 g/dL (3.5-5.0) 11/06/16 02:32 Globulin 3.4 gm/dL (2.2-3.9) 11/06/16 02:32 Albumin/Globulin Ratio 1.2 (1.0-2.1) 11/06/16 02:32 Lipase 134 U/L (23-300) 11/06/16 02:32 Urine Color Straw (YELLOW) 11/06/16 07:30 Urine Clarity Clear (Clear) 11/06/16 07:30 Urine pH 6.0 (5.0-8.0) 11/06/16 07:30 Ur Specific [place] 1.048 (1.003-1.030) H 11/06/16 07:30 Urine Protein Negative mg/dL (NEGATIVE) 11/06/16 07:30 Urine Glucose (UA) Neg mg/dL (Normal) 11/06/16 07:30 Urine Ketones Negative mg/dL (NEGATIVE) 11/06/16 07:30 Urine Blood Negative (NEGATIVE) 11/06/16 07:30 Urine Nitrate Negative (NEGATIVE) 11/06/16 07:30 Urine Bilirubin Negative (NEGATIVE) 11/06/16 07:30 Urine Urobilinogen 0.2-1.0 mg/dL (0.2-1.0) 11/06/16 07:30 Ur Leukocyte Esterase Neg Parminder/uL (Negative) 11/06/16 07:30 Urine RBC (Auto) 1 /hpf (0-3) 11/06/16 07:30 Urine Microscopic WBC < 1 /hpf (0-5) 11/06/16 07:30 Ur Squamous Epith Cells 1 /hpf (0-5) 11/06/16 07:30 - Hospital Course Hospital Course: This is a 71 y/o male admitted for abdominal pain and diarrhea .CT scan showed ileus and possible intestinal obstruction. He was started on Iv fluids and Iv antibiotics and did very well. Has no fever. he was started on clear liquids and had normal bm Diet was advance and tolerated well and was discharged in stable condition on Flagyl and cipro. Advised to follow up with PMD. Discharge Exam - Head Exam Head Exam: NORMAL INSPECTION - Eye Exam Eye Exam: Normal appearance - Respiratory Exam Respiratory Exam: NORMAL BREATHING PATTERN - Cardiovascular Exam Cardiovascular Exam: REGULAR RHYTHM - GI/Abdominal Exam GI & Abdominal Exam: Normal Bowel Sounds - Neurological Exam Neurological exam: CN II-XII Intact, Oriented x3, Reflexes Normal - Psychiatric Exam Psychiatric exam: Normal Mood Discharge Plan - Follow Up Plan Condition: FAIR Disposition: HOME/ ROUTINE Additional Instructions: Rx given. Advised follow up with PMD in 1 week. Referrals: Adriana Tobias MD [Primary Care Provider] -
[2016-11-07] MEDS ORDERED: DASATINIB 100 MG PO SCH (09:00)
[2016-11-07] MEDS ORDERED: Pravastatin Sodium 20 MG TAB PO SCH (09:00)
[2016-11-07 09:37] VITALS: BP 158/70
--- NOTE | 2016-11-07 11:12 | CP.PCM.PN ---
<Ruth Ricardo - Last Filed: 11/07/16 11:12> Subjective - Date & Time of Evaluation Date of Evaluation: 11/07/16 Time of Evaluation: 10:10 - Subjective Subjective: Patient seen and examined at bedside this AM. ROBINSONEO. Patient states that he is passing gas, denies abdominal pain, and is tolerating his liquid diet Objective - Vital Signs/Intake and Output Vital Signs (last 24 hours): Temp Pulse Resp BP Pulse Ox 97.7 F 55 L 20 158/70 H 97 11/07/16 08:04 11/07/16 09:37 11/07/16 08:04 11/07/16 09:37 11/07/16 08:04 - Medications Medications: Current Medications Albuterol (Ventolin Hfa 90 Mcg/Actuation (8 G)) 1 puff INH RQ6 PRN PRN Reason: Shortness of Breath Aspirin (Aspirin Chewable) 81 mg PO DAILY [facility] Last Admin: 11/07/16 08:11 Dose: 81 mg Carvedilol (Coreg) 3.125 mg PO DAILY [facility] Last Admin: 11/07/16 08:11 Dose: 3.125 mg Donepezil HCl (Aricept) 5 mg PO DAILY [facility] Last Admin: 11/07/16 08:11 Dose: 5 mg Enoxaparin Sodium (Lovenox) 40 mg SC DAILY [facility] PRN Reason: Protocol Last Admin: 11/07/16 08:10 Dose: 40 mg Famotidine (Pepcid) 20 mg IVP Q12 [facility] Last Admin: 11/07/16 08:12 Dose: 20 mg Ferrous Sulfate (Feosol) 325 mg PO DAILY [facility] Last Admin: 11/07/16 08:11 Dose: 325 mg Folic Acid (Folic Acid) 1 mg PO DAILY [facility] Last Admin: 11/07/16 08:11 Dose: 1 mg Furosemide (Lasix) 20 mg PO DAILY [facility] Last Admin: 11/07/16 08:12 Dose: 20 mg Home Med (Dasatinib [Sprycel]) 100 mg PO DAILY [facility] Dextrose/Lactated Ringer's (Dextrose 5%/Lactated Ringer's) 1,000 mls @ 125 mls/ hr IV .Q8H [facility] Stop: 11/07/16 12:33 Last Admin: 11/07/16 06:40 Dose: 125 mls/hr Ciprofloxacin (Cipro 400mg/200ml Dsw) 400 mg in 200 mls @ 200 mls/hr IVPB Q12 [facility] Last Admin: 11/07/16 08:10 Dose: 200 mls/hr Losartan Potassium (Cozaar) 50 mg PO DAILY [facility] Last Admin: 11/07/16 08:11 Dose: 50 mg Metronidazole (Flagyl) 500 mg PO Q12 [facility] Last Admin: 11/07/16 08:11 Dose: 500 mg Pravastatin Sodium (Pravachol) 20 mg PO DAILY [facility] Last Admin: 11/07/16 08:11 Dose: 20 mg - Labs Labs: 11/07/16 04:50 - Constitutional Appears: Well, Non-toxic, No Acute Distress - Head Exam Head Exam: ATRAUMATIC, NORMOCEPHALIC - Eye Exam Eye Exam: Normal appearance. absent: Conjunctival injection, Scleral icterus - ENT Exam ENT Exam: Mucous Membranes Moist, Normal Oropharynx - Respiratory Exam Respiratory Exam: NORMAL BREATHING PATTERN. absent: Accessory Muscle Use, Respiratory Distress - GI/Abdominal Exam GI & Abdominal Exam: Soft. absent: Distended, Tenderness - Extremities Exam Extremities Exam: absent: Calf Tenderness, Pedal Edema - Neurological Exam Neurological Exam: Alert, Awake, Oriented x3 - Skin Skin Exam: Dry, Normal Color, Warm Assessment and Plan - Assessment and Plan (Free Text) Assessment: 71M Abdominal Pain Passing gas, tolerating diet Plan: - Advance to regular diet - If tolerates diet Clear to DC to home from a surgical standpoint with PO antibiotics and follow up with Dr. Cárdenas at this office - Abx - GI/DVT ppx - Pain control - serial abdominal exams discussed with Dr. Melia Ricardo, PGY2 <Bernabe Cárdenas - Last Filed: 11/08/16 19:45> Objective - Vital Signs/Intake and Output Vital Signs (last 24 hours): Temp Pulse Resp BP Pulse Ox 97.7 F 55 L 20 158/70 H 97 11/07/16 08:04 11/07/16 09:37 11/07/16 08:04 11/07/16 09:37 11/07/16 08:04 - Labs Labs: 11/07/16 04:50 Attending/Attestation - Attestation I have personally seen and examined this patient.: Yes I have fully participated in the care of the patient.: Yes I have reviewed all pertinent clinical information, including history, physical exam and plan: Yes Notes (Text): 11/08/16 19:44 Pt was seen and examined at bedside Agree with above note and assessment Pt with Gastroenteritis NO clinical evidence of bowel obstruction No surgical intervention required at present f/u as out pt. c.w current mx Plan d.w pt in detail
[2016-11-12 22:47] VITALS: PULSE 57; O2SAT 98
== END 2016-11-07 14:00 | disposition home or self-care (01) ==
LOC: H.ER 01:41 → H.EROBSV 02:38 → H.ERHOLD 06:51 → OBSVTOIN 06:51 → INTOOBSV 06:51 → H.MEDSURG1 08:51
PROVIDERS: ADMIT Family Medicine; ATTEND Family Medicine
DX: K52.9 Noninfective gastroenteritis and colitis, unspecified (principal); I12.9 Hypertensive chronic kidney disease with stage 1 through stage 4 chronic kidney disease, or unspecified chronic kidney disease; F03.90 Unspecified dementia, unspecified severity, without behavioral disturbance, psychotic disturbance, mood disturbance, and anxiety; I25.10 Atherosclerotic heart disease of native coronary artery without angina pectoris; J45.909 Unspecified asthma, uncomplicated; N18.2 Chronic kidney disease, stage 2 (mild); K59.00 Constipation, unspecified; K56.7 Ileus, unspecified; Z79.51 Long term (current) use of inhaled steroids; Z79.82 Long term (current) use of aspirin; Z85.6 Personal history of leukemia; D64.9 Anemia, unspecified; K29.70 Gastritis, unspecified, without bleeding
CPT/HCPCS: 36415; 74177; 80053; 81003; 83690; 85025; 85027; 87086; 96361; 96365; 96366; 96372; 96375; 96376; 99285; G0378; J0744; J1650; J2270; J2405; J7040; J7120; Q9966; Q9967

== ENCOUNTER 2017-04-04 12:36 | Emergency (ER) | payer MEDICARE, OTHER ==
[2017-04-04 12:36] VITALS: BMI 32.3
[2017-04-04 13:05] VITALS: PULSE 72; RESP 20; TEMP 98.1; O2SAT 98
--- NOTE | 2017-04-04 15:55 | ED PDOC ---
HPI: Male Pain Time Seen by Provider: 04/04/17 15:16 Chief Complaint (Nursing): GI Problem Chief Complaint (Provider): Coughing and Black Stool History Per: Patient History/Exam Limitations: no limitations Onset/Duration Of Symptoms: Days (4 days ago) Current Symptoms Are (Timing): Still Present Associated Symptoms: denies: Fever, Nausea, Vomiting, Diarrhea, Constipation Additional Complaint(s): Milo Pretty, a 71 year old male patient presents to the ED complaining of cough onset four days ago with associated symptoms of runny nose and white mucus. Reports of black stool and lower abdominal pain whenever he coughs. Patient states he has soar throat but his fever has resolved. Denies coughing blood, nausea, vomiting, diarrhea, or constipation. PMD:Adriana Tobias Past Medical History Reviewed: Historical Data, Nursing Documentation, Vital Signs Vital Signs: Last Vital Signs Temp 98.1 F 04/04/17 13:03 Pulse 72 04/04/17 13:03 Resp 20 04/04/17 13:03 BP 183/81 H 04/04/17 13:03 Pulse Ox 98 04/04/17 13:03 - Medical History PMH: Anemia, CAD, CHF (?), Dementia, Diabetes, Diverticulitis, Gastritis, HTN, Chronic Kidney Disease Denies: Asthma, Hypercholesterolemia - Surgical History Surgical History: Hernia Repair (Ventral and inguinal) - Family History Family History: States: Hypertension - Social History Alcohol: Other (former alcohol drinker) - Home Medications Home Medications: Ambulatory Orders Medication Instructions Recorded Albuterol HFA [Ventolin HFA 90 1 puff PO PRN PRN 11/06/16 mcg/actuation (8 g)] Aspirin [Aspirin Chewable] 1 tab PO DAILY 11/06/16 Budesonide/Formoterol Fumarate 1 puff PO DAILY 11/06/16 [Symbicort 160-4.5 Mcg Inhaler] Carvedilol [Coreg] 3.125 mg PO DAILY 11/06/16 Dasatinib [Sprycel] 100 mg PO DAILY 11/06/16 Donepezil HCl [Aricept] 1 tab PO DAILY 11/06/16 Ferrous Sulfate [Feosol] 1 tab PO DAILY 11/06/16 Folic Acid 1 tab PO DAILY 11/06/16 Furosemide [Lasix] 1 tab PO DAILY 11/06/16 Linaclotide [Linzess] 1 tab PO DAILY 11/06/16 Losartan Potassium 1 tab PO DAILY 11/06/16 Mv,Min10/Folic Acid/D3/Ala/Lut 1 tab PO DAILY 11/06/16 [Strovite One Caplet] Nitroglycerin [Nitrostat] 1 tab SL PRN PRN 11/06/16 Omeprazole 1 tab PO DAILY 11/06/16 Simvastatin [Zocor] 1 tab PO DAILY 11/06/16 Ciprofloxacin 500 mg PO BID #14 ml 11/07/16 Metronidazole [Flagyl] 500 mg PO TID #21 tablet 11/07/16 - Allergies Allergies/Adverse Reactions: Allergies Allergy/AdvReac Type Severity Reaction Status Date / Time Penicillins Allergy RASH Verified 04/04/17 13:02 Review of Systems ROS Statement: Except As Marked, All Systems Reviewed And Found Negative (As per HPI, otherwise all negative) Constitutional: Positive for: Fever (resolved) ENT: Positive for: Nose Discharge, Throat Swelling Respiratory: Positive for: Cough (4x), Sputum (white). Negative for: Hemoptysis Gastrointestinal: Positive for: Abdominal Pain. Negative for: Nausea, Vomiting , Constipation - ECG O2 Sat by Pulse Oximetry: 98 (RA) Pulse Ox Interpretation: Normal Medical Decision Making Medical Decision Making: Time: 15:35 Impression:Cough, Flu-like Symptoms, Black Stool Differential Diagnosis includes but is not limited to: Flu, GI bleed, Anemic, Dehydrated Initial Plan: --Type and Screen --EKG --CMP --Lipase --Magnesium --Phosphorous --CBC --Partial Thromboplastin Time --Reevaluation Documented by Ofelia Mansfield acting as a scribe for Milly Goss MD. All medical record entries made by the Scribe were at my direction and personally dictated by me. I have reviewed the chart and agree that the record accurately reflects my personal performance of the history, physical exam, medical decision making, and the department course for this patient. I have also personally directed, reviewed, and agree with the discharge instructions and disposition. Disposition - Disposition Forms: [employer] ([place])
[2017-04-04 16:15] LABS: EOS # 0.1 K/uL (0.0-0.7); EOS % 1.9 % (0.0-4.0); HEMOGLOBIN 12.6 g/dL (12.0-18.0); LYMPH # 1.4 K/uL (1.0-4.3); LYMPH % 45.1 % (20.0-40.0); MEAN CELL VOLUME 101.1 fl (80.0-94.0); MEAN CORPUSCULAR HEMOGLOBIN 33.5 pg (27.0-31.0); MEAN CORPUSCULAR HGB CONC 33.1 g/dL (33.0-37.0); MEAN PLATELET VOLUME 7.5 fl (7.2-11.7); MONO # 0.5 K/uL (0.0-0.8); MONO % 15.2 % (0.0-10.0); NEUT # 1.2 K/uL (1.8-7.0); NEUT % 36.8 % (50.0-75.0); NRBC % 0.3 % (0.0-0.0); RBC 3.78 Mil/uL (4.40-5.90); WHITE BLOOD COUNT 3.1 K/uL (4.8-10.8)
--- NOTE | 2017-04-04 16:21 | ED PDOC ---
HPI: General Adult Time Seen by Provider: 04/04/17 15:16 Chief Complaint (Nursing): GI Problem Chief Complaint (Provider): Coughing and Black Stool History Per: Patient History/Exam Limitations: no limitations Onset/Duration Of Symptoms: Days (4x) Current Symptoms Are (Timing): Still Present Additional Complaint(s): Milo Pretty, a 71 year old male patient presents to the ED complaining of cough onset four days ago with associated symptoms of runny nose and white mucus. Reports of black stool and lower abdominal pain whenever he coughs. Patient states he has soar throat but his fever has resolved. Denies coughing blood, nausea, vomiting, diarrhea, or constipation. PMD:Adriana Tobias Past Medical History Reviewed: Historical Data, Nursing Documentation, Vital Signs Vital Signs: Last Vital Signs Temp 98.1 F 04/04/17 13:03 Pulse 72 04/04/17 13:03 Resp 20 04/04/17 13:03 BP 130/83 04/04/17 17:08 Pulse Ox 98 04/04/17 17:04 - Medical History PMH: Anemia, CAD, Dementia, Diabetes, Diverticulitis, Gastritis, HTN, Chronic Kidney Disease Denies: Asthma, Hypercholesterolemia Comment Only: CHF (?) - Surgical History Surgical History: Hernia Repair (Ventral and inguinal) - Family History Family History: States: Hypertension - Social History Alcohol: Other (former drinker) - Home Medications Home Medications: Ambulatory Orders Medication Instructions Recorded Albuterol HFA [Ventolin HFA 90 1 puff PO PRN PRN 11/06/16 mcg/actuation (8 g)] Aspirin [Aspirin Chewable] 1 tab PO DAILY 11/06/16 Budesonide/Formoterol Fumarate 1 puff PO DAILY 11/06/16 [Symbicort 160-4.5 Mcg Inhaler] Carvedilol [Coreg] 3.125 mg PO DAILY 11/06/16 Dasatinib [Sprycel] 100 mg PO DAILY 11/06/16 Donepezil HCl [Aricept] 1 tab PO DAILY 11/06/16 Ferrous Sulfate [Feosol] 1 tab PO DAILY 11/06/16 Folic Acid 1 tab PO DAILY 11/06/16 Furosemide [Lasix] 1 tab PO DAILY 11/06/16 Linaclotide [Linzess] 1 tab PO DAILY 11/06/16 Losartan Potassium 1 tab PO DAILY 11/06/16 Mv,Min10/Folic Acid/D3/Ala/Lut 1 tab PO DAILY 11/06/16 [Strovite One Caplet] Nitroglycerin [Nitrostat] 1 tab SL PRN PRN 11/06/16 Omeprazole 1 tab PO DAILY 11/06/16 Simvastatin [Zocor] 1 tab PO DAILY 11/06/16 Ciprofloxacin 500 mg PO BID #14 ml 11/07/16 Metronidazole [Flagyl] 500 mg PO TID #21 tablet 11/07/16 Azithromycin 1 tab PO DAILY #6 tab 04/04/17 Dextromethorphn/Acetaminoph/Cp 1 each PO PRN PRN #30 tablet 04/04/17 [Coricidin Hbp Flu Tablet] - Allergies Allergies/Adverse Reactions: Allergies Allergy/AdvReac Type Severity Reaction Status Date / Time Penicillins Allergy RASH Verified 04/04/17 13:02 Review of Systems ROS Statement: Except As Marked, All Systems Reviewed And Found Negative (As per HPI, otherwise negative) Constitutional: Negative for: Fever ENT: Positive for: Nose Discharge, Throat Swelling Respiratory: Positive for: Cough (4x), Sputum (white). Negative for: Hemoptysis Gastrointestinal: Positive for: Abdominal Pain, Melena. Negative for: Nausea, Vomiting, Constipation Physical Exam - Reviewed Nursing Documentation Reviewed: Yes Vital Signs Reviewed: Yes - Physical Exam Appears: Positive for: Non-toxic, No Acute Distress Head Exam: Positive for: ATRAUMATIC, NORMOCEPHALIC Skin: Positive for: Warm, Dry Eye Exam: Positive for: EOMI, PERRL ENT: Negative for: Pharyngeal Erythema, Tonsillar Exudate Neck: Positive for: Painless ROM, Supple Cardiovascular/Chest: Positive for: Regular Rate, Rhythm. Negative for: Murmur Respiratory: Positive for: Normal Breath Sounds. Negative for: Wheezing Gastrointestinal/Abdominal: Positive for: Soft. Negative for: Tenderness, Mass , Distended, Guarding Back: Positive for: Normal Inspection. Negative for: Decreased ROM Extremity: Positive for: Normal ROM. Negative for: Deformity Lymphatic: Negative for: Adenopathy Neurologic/Psych: Positive for: Alert. Negative for: Motor/Sensory Deficits - Laboratory Results Result Diagrams: 04/04/17 16:08 04/04/17 16:08 - ECG ECG Rhythm: Positive for: Sinus Bradycardia, Right Bundle Branch Block, Premature Ventricular Contraction (x2) Interpretation Of Abn EKG: Similar to previous EKG O2 Sat by Pulse Oximetry: 98 (RA) Pulse Ox Interpretation: Normal - Radiology X-Ray: Interpreted by Me X-Ray Interpretation: No Acute Disease Medical Decision Making Medical Decision Making: Time: 15:35 Impression:Cough, Flu-like Symptoms, Black Stool Differential Diagnosis includes but is not limited to: Flu, GI bleed, Anemia, Dehydration, pneumonia Initial Plan: --Type and Screen --EKG --CMP --Lipase --Magnesium --Phosphorous --CBC --Partial Thromboplastin Time --Reevaluation Unremarkable labs CXR unremarkable as well. Documented by Ofelia Mansfield acting as a scribe for Milly Goss MD. All medical record entries made by the Scribe were at my direction and personally dictated by me. I have reviewed the chart and agree that the record accurately reflects my personal performance of the history, physical exam, medical decision making, and the department course for this patient. I have also personally directed, reviewed, and agree with the discharge instructions and disposition. Disposition - Clinical Impression Clinical Impression: Bronchitis Counseled Patient/Family Regarding: Studies Performed, Diagnosis, Need For Followup, Rx Given - Disposition Referrals: Adriana Tobias MD [Family Provider] - 04/07/17 Disposition: Routine/Home Disposition Time: 17:00 Condition: GOOD Prescriptions: Azithromycin 1 tab PO DAILY #6 tab Dextromethorphn/Acetaminoph/Cp [Coricidin Hbp Flu Tablet] 1 each PO PRN PRN #30 tablet PRN Reason: cough Instructions: Acute Bronchitis (ED) Print Language: AZERI
[2017-04-04 16:26] LABS: PARTIAL THROMBOPLASTIN TIME 34.5 Seconds (25.6-37.1)
[2017-04-04 16:37] LABS: ALB/GLOB RATIO 1.2 (1.0-2.1); ALBUMIN 4.1 g/dL (3.5-5.0); ALT/SGPT 47 U/L (21-72); AST/SGOT 40 U/L (17-59); BLOOD UREA NITROGEN 15 mg/dl (9-20); CALCIUM 9.3 mg/dL (8.4-10.2); GFR AFRICAN-AMERICAN > 60; GFR NON-AFRICAN AMERICAN 60; LIPASE 140 U/L (23-300); MAGNESIUM 1.9 MG/DL (1.6-2.3)
[2017-04-04 17:08] VITALS: BP 130/83
--- NOTE | 2017-04-04 18:21 | RAD ---
HISTORY: Cough. COMPARISON: 08/29/2016. TECHNIQUE: Chest PA and lateral FINDINGS: LUNGS: No active pulmonary disease. PLEURA: No significant pleural effusion identified. No pneumothorax apparent. CARDIOVASCULAR: Normal. OSSEOUS STRUCTURES: No significant abnormalities. VISUALIZED UPPER ABDOMEN: Normal. OTHER FINDINGS: None. IMPRESSION: No active disease. No significant interval change compared to the prior examination(s). Concordant results with the preliminary interpretation rendered by the emergency department physician procedure.
--- NOTE | 2017-04-05 10:32 | CARD ---
APPROVED REPORT EKG Measurement Heart [id number] <Conclusion> Sinus bradycardia with premature supraventricular complexes and with occasional premature ventricular complexes Right bundle branch block Abnormal ECG
== END 2017-04-04 18:06 | disposition home or self-care (01) ==
LOC: H.ER 12:36
DX: J40 Bronchitis, not specified as acute or chronic (principal); K92.1 Melena; F03.90 Unspecified dementia, unspecified severity, without behavioral disturbance, psychotic disturbance, mood disturbance, and anxiety; I13.0 Hypertensive heart and chronic kidney disease with heart failure and stage 1 through stage 4 chronic kidney disease, or unspecified chronic kidney disease; Z88.0 Allergy status to penicillin
CPT/HCPCS: 71046; 80053; 82948; 83690; 83735; 84100; 85025; 85610; 85730; 86850; 86900; 87040; 87804; 93005; 99283; G0328

== ENCOUNTER 2017-06-13 12:49 | Observation (INO) | payer MEDICARE, OTHER ==
[2017-06-13 12:49] VITALS: BMI 32.3
--- NOTE | 2017-06-13 13:39 | ED PDOC ---
HPI: Chest Pain Time Seen by Provider: 06/13/17 13:19 Chief Complaint (Nursing): Shortness Of Breath Chief Complaint (Provider): CP History Per: Patient History/Exam Limitations: no limitations Additional Complaint(s): Pt reports midsternal CP X 4 days, worse with ambulation, associated with minimal SOB. Denies nausea, vomiting, palpitations. Has appt scheduled with Dr. Lynch on 07/15 but cannot wait. Past Medical History Reviewed: Nursing Documentation, Vital Signs Vital Signs: Last Vital Signs Temp 97.9 F 06/14/17 08:37 Pulse 57 L 06/14/17 09:21 Resp 18 06/14/17 08:37 BP 142/67 06/14/17 09:21 Pulse Ox 97 06/14/17 08:37 - Medical History PMH: Anemia, CAD, Dementia, Diabetes, Diverticulitis, Gastritis, HTN, Chronic Kidney Disease Denies: Asthma, Hypercholesterolemia Comment Only: CHF (?) - Surgical History Surgical History: Hernia Repair (Ventral and inguinal) - Family History Family History: States: Unknown Family Hx, Hypertension - Social History Current smoker - smoking cessation education provided: No Alcohol: None - Home Medications Home Medications: Ambulatory Orders Medication Instructions Recorded Albuterol HFA [Ventolin HFA 90 2 puff IH Q4 PRN 11/06/16 mcg/actuation (8 g)] Budesonide/Formoterol Fumarate 2 puff IH Q12 11/06/16 [Symbicort 160-4.5 Mcg Inhaler] Dasatinib [Sprycel] 100 mg PO DAILY 11/06/16 Donepezil HCl [Aricept] 5 mg PO HS 11/06/16 Ferrous Sulfate [Feosol] 325 mg PO DAILY 11/06/16 Folic Acid 1 mg PO DAILY 11/06/16 Furosemide [Lasix] 20 mg PO Q48H 11/06/16 Linaclotide [Linzess] 290 mcg PO DAILY PRN 11/06/16 Losartan Potassium 50 mg PO DAILY 11/06/16 Mv,Min10/Folic Acid/D3/Ala/Lut 1 tab PO DAILY 11/06/16 [Strovite One Caplet] Nitroglycerin [Nitrostat] 0.4 mg SL Q5MIN PRN 11/06/16 Omeprazole 40 mg PO DAILY 11/06/16 Simvastatin [Zocor] 20 mg PO HS 11/06/16 Aspirin [Ecotrin] 81 mg PO DAILY 06/13/17 Ergocalciferol (Vitamin D2) 50,000 unit PO SUN 06/13/17 [Vitamin D2] Glipizide [Glipizide ER] 5 mg PO DAILY 06/13/17 Metoprolol Tartrate [Lopressor] 25 mg PO Q12 06/13/17 Olopatadine 0.1% Opht [Patanol 1 drop EACHEYE DAILY PRN 06/13/17 0.1% Opht Soln] - Allergies Allergies/Adverse Reactions: Allergies Allergy/AdvReac Type Severity Reaction Status Date / Time Penicillins Allergy RASH Verified 06/13/17 12:56 ADALGISA Risk Score for UA/NSTEMI - ADALGISA Risk Score Age > 64: YES 3 or more CAD Risk Factors: YES Known CAD (Stenosis greater than 50%): NO Aspirin use in past 7 days: YES Severe Angina: YES EKG ST changes greater than 0.5mm: NO Positive Cardiac Marker: NO ADALGISA Score: 4 Risk %: 20% Wells Criteria for PE - Wells Criteria for Pulmonary Embolism Clinical Signs and Symptoms of DVT: No P.E is #1 Diagnosis, or Equally Likely: No Heart Rate >100: No Immobilization at least 3 days;Surgery previous 4 weeks: No Previous, objectively diagnosed PE or DVT: No Hemoptysis: No Malignancy w/treatment within 6 months, or palliative: No Total Score: 0 Review of Systems Constitutional: Negative for: Fever, Chills Cardiovascular: Negative for: Palpitations Respiratory: Positive for: Shortness of Breath. Negative for: Cough Gastrointestinal: Negative for: Vomiting, Abdominal Pain, Diarrhea Genitourinary Male: Negative for: Hematuria Musculoskeletal: Negative for: Back Pain Skin: Negative for: Rash, Lesions Neurological: Negative for: Headache, Dizziness Physical Exam - Reviewed Nursing Documentation Reviewed: Yes Vital Signs Reviewed: Yes - Physical Exam Appears: Positive for: Well, No Acute Distress Head Exam: Positive for: ATRAUMATIC, NORMAL INSPECTION Skin: Positive for: Normal Color, Warm, Dry Eye Exam: Positive for: Normal appearance, EOMI, PERRL Cardiovascular/Chest: Positive for: Regular Rate, Rhythm, Murmur Respiratory: Positive for: Normal Breath Sounds. Negative for: Rales, Rhonchi, Wheezing Gastrointestinal/Abdominal: Positive for: Normal Exam Back: Positive for: Normal Inspection Extremity: Positive for: Normal ROM. Negative for: Calf Tenderness, Deformity, Swelling Neurologic/Psych: Positive for: Alert, station cashier II-XII, Oriented - Laboratory Results Result Diagrams: 06/14/17 06:15 06/14/17 06:15 - ECG Interpretation Of ECG: NSR @ 68, RBBB, LVH. O2 Sat by Pulse Oximetry: 98 Pulse Ox Interpretation: Normal Medical Decision Making Medical Decision Makin yo male with exertional CP. - labs - EKG - CXR Disposition - Clinical Impression Clinical Impression: CHF (congestive heart failure), Chest pain - Disposition Disposition: Transfer of Care Disposition Time: 15:00 Condition: STABLE Patient Signed Over To: Milly Goss
--- NOTE | 2017-06-13 14:24 | ED PDOC ---
- Laboratory Results Result Diagrams: 06/13/17 14:26 06/13/17 14:26 - ECG O2 Sat by Pulse Oximetry: 98 (RA) Pulse Ox Interpretation: Normal - Radiology X-Ray: Interpreted by Me, Viewed By Me X-Ray Interpretation: No Acute Disease, Infiltrates, Other (no infiltrate or effusion) Medical Decision Making Medical Decision Makin:00: Transfer of staff from Dr. Haskins to Dr. Goss. Patient complains of chest pain and is pending ED workup, reassessment, and final disposition. 1500 Labs demonstrate elevated proBNP. Other labs wnl. Ddimer pending [address] Gunn Medical service for hospitalization for chest pain , unstable angina. 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 Scribe Attestation: Documented by Estephania Cross, acting as a scribe for Milly Goss MD. Provider Scribe Attestation: All medical record entries made by the Scribe were at my direction and personally dictated by me. I have reviewed the chart and agree that the record accurately reflects my personal performance of the history, physical exam, medical decision making, and the department course for this patient. I have also personally directed, reviewed, and agree with the discharge instructions and disposition. Disposition Counseled Patient/Family Regarding: Studies Performed, Diagnosis, Need For Followup - Clinical Impression Clinical Impression: CHF (congestive heart failure), Chest pain - POA Present On Arrival: None - Disposition Disposition: Hospitalized as Observation Patient Disposition Time: 16:00 Condition: FAIR
[2017-06-13 14:32] LABS: BASO # 0.1 K/uL (0.0-0.2); BASO % 0.8 % (0.0-2.0); EOS % 0.2 % (0.0-4.0); HEMOGLOBIN 12.1 g/dL (12.0-18.0); LYMPH # 2.1 K/uL (1.0-4.3); LYMPH % 21.3 % (20.0-40.0); MEAN CELL VOLUME 102.5 fl (80.0-94.0); MEAN CORPUSCULAR HEMOGLOBIN 34.3 pg (27.0-31.0); MEAN CORPUSCULAR HGB CONC 33.5 g/dL (33.0-37.0); MONO # 0.8 K/uL (0.0-0.8); MONO % 8.4 % (0.0-10.0); NEUT # 6.7 K/uL (1.8-7.0); NEUT % 69.3 % (50.0-75.0); NRBC % 0.1 % (0.0-0.0); RBC 3.52 Mil/uL (4.40-5.90); RED CELL DISTRIBUTION WIDTH 14.8 % (11.5-14.5)
[2017-06-13 14:35] LABS: WHITE BLOOD COUNT 9.6 K/uL (4.8-10.8)
--- NOTE | 2017-06-13 14:40 | RAD ---
HISTORY: CP COMPARISON: Chest radiograph dated 04/04/2017. FINDINGS: LUNGS: No active pulmonary disease. PLEURA: No significant pleural effusion identified, no pneumothorax apparent. CARDIOVASCULAR: Cardiomediastinal silhouette stably enlarged. OSSEOUS STRUCTURES: Unchanged. VISUALIZED UPPER ABDOMEN: Normal. OTHER FINDINGS: None. IMPRESSION: No active disease.
[2017-06-13 14:54] LABS: PARTIAL THROMBOPLASTIN TIME 31.8 Seconds (25.6-37.1)
[2017-06-13 14:58] LABS: ALB/GLOB RATIO 1.2 (1.0-2.1); ALBUMIN 3.7 g/dL (3.5-5.0); ALT/SGPT 74 U/L (21-72); AST/SGOT 73 U/L (17-59); BLOOD UREA NITROGEN 21 mg/dl (9-20); CALCIUM 9.3 mg/dL (8.4-10.2); GFR AFRICAN-AMERICAN > 60; GFR NON-AFRICAN AMERICAN 50
[2017-06-13 15:10] LABS: B-TYPE NATRIURETIC PEPTIDE 2530 pg/ml (0-900)
[2017-06-13] MEDS ORDERED: Aspirin 325 mg EC Tablets PO ONE (16:46)
[2017-06-13 17:02] LABS: SQUAMOUS EPITHIAL < 1 /hpf (0-5); URINE BILIRUBIN NEGATIVE (NEGATIVE); URINE BLOOD NEGATIVE (NEGATIVE); URINE CLARITY CLEAR (Clear); URINE COLOR YELLOW (YELLOW); URINE GLUCOSE (UA) NEG (Normal); URINE LEUKOCYTE ESTERASE NEG Leu/uL (Negative); URINE PROTEIN 30 mg/dL (NEGATIVE); URINE UROBILINOGEN 0.2-1.0 mg/dL (0.2-1.0)
[2017-06-13] MEDS ORDERED: Albuterol HFA 90 mcg/actuation (8 g) IH PRN (20:29)
[2017-06-13] MEDS ORDERED: Olopatadine 0.1% Opht SOLN OS PRN (20:29)
[2017-06-13] MEDS ORDERED: Patient's Own Med (Budesonide/Formoterol Fumarate [Symbicort 160-4.5 Mcg Inhaler] 2 PUFF) IH SCH (21:00)
[2017-06-14 00:12] VITALS: RESP 18
[2017-06-14] MEDS ORDERED: Pneumococcal 23-Valent Vaccine IM ONE (05:50)
[2017-06-14 07:04] LABS: HEMOGLOBIN 11.4 g/dL (12.0-18.0); MEAN CORPUSCULAR HEMOGLOBIN 34.2 pg (27.0-31.0); MEAN CORPUSCULAR HGB CONC 33.2 g/dL (33.0-37.0); RBC 3.35 Mil/uL (4.40-5.90); RED CELL DISTRIBUTION WIDTH 14.7 % (11.5-14.5); WHITE BLOOD COUNT 5.9 K/uL (4.8-10.8)
[2017-06-14 07:28] LABS: BLOOD UREA NITROGEN 20 mg/dl (9-20); CALCIUM 9.2 mg/dL (8.4-10.2); GFR AFRICAN-AMERICAN > 60; GFR NON-AFRICAN AMERICAN 50; HDL CHOLESTEROL 67 MG/DL (30-70)
[2017-06-14 07:50] LABS: LDL CHOLESTEROL 70 mg/dL (0-129)
[2017-06-14 08:38] VITALS: BP 142/67; PULSE 57; TEMP 97.9
--- NOTE | 2017-06-14 08:52 | CP.PCM.CON ---
History of Present Illness - History of Present Illness History of Present Illness: patient seen/examined. consult to follow. Admitted for chest pain. cardiac enzymes are negative. Had cath 2017 no signficant CAD. EKG no ischemia. Stable for discharge. outpatient follow up. Past Patient History - Tetanus Immunizations Tetanus Immunization: Unknown - Past Medical History & Family History Past Medical History?: Yes - Past Social History Smoking Status: Never Smoked - CARDIAC Hx Cardiac Disorders: Yes Hx Congestive Heart Failure: (?) Hx Hypercholesterolemia: No Hx Hypertension: Yes - PULMONARY Hx Respiratory Disorders: No Hx Asthma: No - NEUROLOGICAL Hx Neurological Disorder: Yes Hx Dementia: Yes - HEENT Hx HEENT Problems: No - RENAL Hx Chronic Kidney Disease: Yes - ENDOCRINE/METABOLIC Hx Endocrine Disorders: Yes Hx Diabetes Mellitus Type 2: Yes - HEMATOLOGICAL/ONCOLOGICAL Hx Blood Disorders: Yes Hx AIDS: No Hx Anemia: Yes Hx Human Immunodeficiency Virus (HIV): No - INTEGUMENTARY Hx Dermatological Problems: No - MUSCULOSKELETAL/RHEUMATOLOGICAL Hx Musculoskeletal Disorders: No Hx Falls: No - GASTROINTESTINAL Hx Gastrointestinal Disorders: Yes Hx Diverticulitis: Yes Hx Gastritis: Yes - GENITOURINARY/GYNECOLOGICAL Hx Genitourinary Disorders: No - PSYCHIATRIC Hx Psychophysiologic Disorder: No Hx Substance Use: No - SURGICAL HISTORY Hx Surgeries: Yes Hx Herniorrhaphy: Yes (x2) Other/Comment: inguinal and umbilical hernia repair - ANESTHESIA Hx Anesthesia: Yes Hx Anesthesia Reactions: No Hx Malignant Hyperthermia: No Meds Allergies/Adverse Reactions: Allergies Allergy/AdvReac Type Severity Reaction Status Date / Time Penicillins Allergy RASH Verified 06/13/17 12:56 - Medications Medications: Current Medications Albuterol (Ventolin Hfa 90 Mcg/Actuation (8 G)) 2 puff IH Q4 PRN PRN Reason: Shortness of Breath Aspirin (Aspirin) 325 mg PO DAILY [facility] Atorvastatin Calcium (Lipitor) 40 mg PO HS [facility] Donepezil HCl (Aricept) 5 mg PO HS [facility] Last Admin: 06/13/17 23:08 Dose: 5 mg Enoxaparin Sodium (Lovenox) 40 mg SC DAILY [facility] PRN Reason: Protocol Ergocalciferol (Drisdol 50,000 Intl Units Cap) 1 cap PO SUN [facility] Ferrous Sulfate (Feosol) 325 mg PO DAILY [facility] Folic Acid (Folic Acid) 1 mg PO DAILY [facility] Furosemide (Lasix) 20 mg PO Q48H [facility] Last Admin: 06/13/17 23:09 Dose: 20 mg Glipizide (Glucotrol Xl) 5 mg PO DAILY [facility] Home Med (Budesonide/Formoterol Fumarate [Symbicort 160-4.5 Mcg Inhaler]) 2 puff IH Q12 [facility] Home Med (Dasatinib [Sprycel]) 100 mg PO DAILY [facility] Home Med (Linaclotide [Linzess]) 290 mcg PO DAILY PRN PRN Reason: Constipation Losartan Potassium (Cozaar) 50 mg PO DAILY [facility] Metoprolol Tartrate (Lopressor) 25 mg PO Q12 [facility] Last Admin: 06/13/17 23:08 Dose: 25 mg Multivitamins/Minerals (Therapeutic-M Tab) 1 tab PO DAILY [facility] Nitroglycerin (Nitrostat Sl Tab) 0.4 mg SL Q5MIN PRN PRN Reason: chest pain Olopatadine HCl (Patanol 0.1% Opht Soln) 1 drop OS DAILY PRN PRN Reason: Allergy symptoms Pantoprazole Sodium (Protonix Ec Tab) 40 mg PO DAILY [facility] Results - Vital Signs Recent Vital Signs: Last Vital Signs Temp 97.9 F 06/14/17 08:37 Pulse 57 L 06/14/17 08:37 Resp 18 06/14/17 08:37 BP 142/67 06/14/17 08:37 Pulse Ox 97 06/14/17 08:37 - Labs Result Diagrams: 06/14/17 06:15 06/14/17 06:15 Labs: Laboratory Results - last 24 hr 06/13/17 06/13/17 06/13/17 14:26 14:26 14:26 WBC 9.6 D RBC 3.52 L Hgb 12.1 Hct 36.0 MCV 102.5 H MCH 34.3 H MCHC 33.5 RDW 14.8 H Plt Count 250 MPV 7.0 L Neut % (Auto) 69.3 Lymph % (Auto) 21.3 [place] % (Auto) 8.4 Eos % (Auto) 0.2 Baso % (Auto) 0.8 Neut # (Auto) 6.7 Lymph # (Auto) 2.1 [place] # (Auto) 0.8 Eos # (Auto) 0.0 Baso # (Auto) 0.1 PT 11.0 INR 1.0 APTT 31.8 D-Dimer, Quantitative Sodium 144 Potassium 3.9 Chloride 104 Carbon Dioxide 25 Anion Gap 19 BUN 21 H Creatinine 1.4 Est GFR ( Amer) > 60 Est GFR (Non-Af Amer) 50 POC Glucose (mg/dL) Random Glucose 75 Calcium 9.3 Magnesium Total Bilirubin 0.8 AST 73 H D ALT 74 H D Alkaline Phosphatase 56 Troponin I 0.0430 NT-Pro-B Natriuret Pep 2530 H Total Protein 6.9 Albumin 3.7 Globulin 3.2 Albumin/Globulin Ratio 1.2 Triglycerides Cholesterol LDL Cholesterol Direct HDL Cholesterol TSH 3rd Generation Urine Color Urine Clarity Urine pH Ur Specific [place] Urine Protein Urine Glucose (UA) Urine Ketones Urine Blood Urine Nitrate Urine Bilirubin Urine Urobilinogen Ur Leukocyte Esterase Urine RBC (Auto) Urine Microscopic WBC Ur Squamous Epith Cells 06/13/17 06/13/17 06/13/17 15:31 17:20 20:57 WBC RBC Hgb Hct MCV MCH MCHC RDW Plt Count MPV Neut % (Auto) Lymph % (Auto) [place] % (Auto) Eos % (Auto) Baso % (Auto) Neut # (Auto) Lymph # (Auto) [place] # (Auto) Eos # (Auto) Baso # (Auto) PT INR APTT D-Dimer, Quantitative 220 Sodium Potassium Chloride Carbon Dioxide Anion Gap BUN Creatinine Est GFR ( Amer) Est GFR (Non-Af Amer) POC Glucose (mg/dL) Random Glucose Calcium Magnesium Total Bilirubin AST ALT Alkaline Phosphatase Troponin I 0.0490 NT-Pro-B Natriuret Pep Total Protein Albumin Globulin Albumin/Globulin Ratio Triglycerides Cholesterol LDL Cholesterol Direct HDL Cholesterol TSH 3rd Generation Urine Color Yellow Urine Clarity Clear Urine pH 5.0 Ur Specific [place] 1.023 Urine Protein 30 Urine Glucose (UA) Neg Urine Ketones 20 Urine Blood Negative Urine Nitrate Negative Urine Bilirubin Negative Urine Urobilinogen 0.2-1.0 Ur Leukocyte Esterase Neg Urine RBC (Auto) < 1 Urine Microscopic WBC 1 Ur Squamous Epith Cells < 1 06/13/17 06/14/17 06/14/17 22:50 02:56 05:35 WBC RBC Hgb Hct MCV MCH MCHC RDW Plt Count MPV Neut % (Auto) Lymph % (Auto) [place] % (Auto) Eos % (Auto) Baso % (Auto) Neut # (Auto) Lymph # (Auto) [place] # (Auto) Eos # (Auto) Baso # (Auto) PT INR APTT D-Dimer, Quantitative Sodium Potassium Chloride Carbon Dioxide Anion Gap BUN Creatinine Est GFR ( Amer) Est GFR (Non-Af Amer) POC Glucose (mg/dL) 60 L 57 L Random Glucose Calcium Magnesium Total Bilirubin AST ALT Alkaline Phosphatase Troponin I 0.0430 NT-Pro-B Natriuret Pep Total Protein Albumin Globulin Albumin/Globulin Ratio Triglycerides Cholesterol LDL Cholesterol Direct HDL Cholesterol TSH 3rd Generation Urine Color Urine Clarity Urine pH Ur Specific [place] Urine Protein Urine Glucose (UA) Urine Ketones Urine Blood Urine Nitrate Urine Bilirubin Urine Urobilinogen Ur Leukocyte Esterase Urine RBC (Auto) Urine Microscopic WBC Ur Squamous Epith Cells 06/14/17 06/14/17 06:15 06:15 WBC 5.9 RBC 3.35 L Hgb 11.4 L Hct 34.5 L MCV 103.0 H MCH 34.2 H MCHC 33.2 RDW 14.7 H Plt Count 248 MPV Neut % (Auto) Lymph % (Auto) [place] % (Auto) Eos % (Auto) Baso % (Auto) Neut # (Auto) Lymph # (Auto) [place] # (Auto) Eos # (Auto) Baso # (Auto) PT INR APTT D-Dimer, Quantitative Sodium 142 Potassium 3.6 Chloride 101 Carbon Dioxide 30 Anion Gap 15 BUN 20 Creatinine 1.4 Est GFR ( Amer) > 60 Est GFR (Non-Af Amer) 50 POC Glucose (mg/dL) Random Glucose 128 H Calcium 9.2 Magnesium 1.8 Total Bilirubin AST ALT Alkaline Phosphatase Troponin I NT-Pro-B Natriuret Pep Total Protein Albumin Globulin Albumin/Globulin Ratio Triglycerides 87 D Cholesterol 170 LDL Cholesterol Direct 70 HDL Cholesterol 67 TSH 3rd Generation 1.66 Urine Color Urine Clarity Urine pH Ur Specific [place] Urine Protein Urine Glucose (UA) Urine Ketones Urine Blood Urine Nitrate Urine Bilirubin Urine Urobilinogen Ur Leukocyte Esterase Urine RBC (Auto) Urine Microscopic WBC Ur Squamous Epith Cells
--- NOTE | 2017-06-14 08:52 | CP.PCM.CON ---
Past Patient History - Tetanus Immunizations Tetanus Immunization: Unknown - Past Medical History & Family History Past Medical History?: Yes - Past Social History Smoking Status: Never Smoked - CARDIAC Hx Cardiac Disorders: Yes Hx Congestive Heart Failure: (?) Hx Hypercholesterolemia: No Hx Hypertension: Yes - PULMONARY Hx Respiratory Disorders: No Hx Asthma: No - NEUROLOGICAL Hx Neurological Disorder: Yes Hx Dementia: Yes - HEENT Hx HEENT Problems: No - RENAL Hx Chronic Kidney Disease: Yes - ENDOCRINE/METABOLIC Hx Endocrine Disorders: Yes Hx Diabetes Mellitus Type 2: Yes - HEMATOLOGICAL/ONCOLOGICAL Hx Blood Disorders: Yes Hx AIDS: No Hx Anemia: Yes Hx Human Immunodeficiency Virus (HIV): No - INTEGUMENTARY Hx Dermatological Problems: No - MUSCULOSKELETAL/RHEUMATOLOGICAL Hx Musculoskeletal Disorders: No Hx Falls: No - GASTROINTESTINAL Hx Gastrointestinal Disorders: Yes Hx Diverticulitis: Yes Hx Gastritis: Yes - GENITOURINARY/GYNECOLOGICAL Hx Genitourinary Disorders: No - PSYCHIATRIC Hx Psychophysiologic Disorder: No Hx Substance Use: No - SURGICAL HISTORY Hx Surgeries: Yes Hx Herniorrhaphy: Yes (x2) Other/Comment: inguinal and umbilical hernia repair - ANESTHESIA Hx Anesthesia: Yes Hx Anesthesia Reactions: No Hx Malignant Hyperthermia: No Meds Allergies/Adverse Reactions: Allergies Allergy/AdvReac Type Severity Reaction Status Date / Time Penicillins Allergy RASH Verified 06/13/17 12:56 - Medications Medications: Current Medications Albuterol (Ventolin Hfa 90 Mcg/Actuation (8 G)) 2 puff IH Q4 PRN PRN Reason: Shortness of Breath Aspirin (Aspirin) 325 mg PO DAILY [facility] Atorvastatin Calcium (Lipitor) 40 mg PO HS [facility] Donepezil HCl (Aricept) 5 mg PO HS [facility] Last Admin: 06/13/17 23:08 Dose: 5 mg Enoxaparin Sodium (Lovenox) 40 mg SC DAILY [facility] PRN Reason: Protocol Ergocalciferol (Drisdol 50,000 Intl Units Cap) 1 cap PO SUN [facility] Ferrous Sulfate (Feosol) 325 mg PO DAILY [facility] Folic Acid (Folic Acid) 1 mg PO DAILY [facility] Furosemide (Lasix) 20 mg PO Q48H [facility] Last Admin: 06/13/17 23:09 Dose: 20 mg Glipizide (Glucotrol Xl) 5 mg PO DAILY [facility] Home Med (Budesonide/Formoterol Fumarate [Symbicort 160-4.5 Mcg Inhaler]) 2 puff IH Q12 [facility] Home Med (Dasatinib [Sprycel]) 100 mg PO DAILY [facility] Home Med (Linaclotide [Linzess]) 290 mcg PO DAILY PRN PRN Reason: Constipation Losartan Potassium (Cozaar) 50 mg PO DAILY [facility] Metoprolol Tartrate (Lopressor) 25 mg PO Q12 [facility] Last Admin: 06/13/17 23:08 Dose: 25 mg Multivitamins/Minerals (Therapeutic-M Tab) 1 tab PO DAILY [facility] Nitroglycerin (Nitrostat Sl Tab) 0.4 mg SL Q5MIN PRN PRN Reason: chest pain Olopatadine HCl (Patanol 0.1% Opht Soln) 1 drop OS DAILY PRN PRN Reason: Allergy symptoms Pantoprazole Sodium (Protonix Ec Tab) 40 mg PO DAILY [facility] Results - Vital Signs Recent Vital Signs: Last Vital Signs Temp 97.9 F 06/14/17 08:37 Pulse 57 L 06/14/17 08:37 Resp 18 06/14/17 08:37 BP 142/67 06/14/17 08:37 Pulse Ox 97 06/14/17 08:37 - Labs Result Diagrams: 06/14/17 06:15 06/14/17 06:15 Labs: Laboratory Results - last 24 hr 06/13/17 06/13/17 06/13/17 14:26 14:26 14:26 WBC 9.6 D RBC 3.52 L Hgb 12.1 Hct 36.0 MCV 102.5 H MCH 34.3 H MCHC 33.5 RDW 14.8 H Plt Count 250 MPV 7.0 L Neut % (Auto) 69.3 Lymph % (Auto) 21.3 [place] % (Auto) 8.4 Eos % (Auto) 0.2 Baso % (Auto) 0.8 Neut # (Auto) 6.7 Lymph # (Auto) 2.1 [place] # (Auto) 0.8 Eos # (Auto) 0.0 Baso # (Auto) 0.1 PT 11.0 INR 1.0 APTT 31.8 D-Dimer, Quantitative Sodium 144 Potassium 3.9 Chloride 104 Carbon Dioxide 25 Anion Gap 19 BUN 21 H Creatinine 1.4 Est GFR ( Amer) > 60 Est GFR (Non-Af Amer) 50 POC Glucose (mg/dL) Random Glucose 75 Calcium 9.3 Magnesium Total Bilirubin 0.8 AST 73 H D ALT 74 H D Alkaline Phosphatase 56 Troponin I 0.0430 NT-Pro-B Natriuret Pep 2530 H Total Protein 6.9 Albumin 3.7 Globulin 3.2 Albumin/Globulin Ratio 1.2 Triglycerides Cholesterol LDL Cholesterol Direct HDL Cholesterol TSH 3rd Generation Urine Color Urine Clarity Urine pH Ur Specific [place] Urine Protein Urine Glucose (UA) Urine Ketones Urine Blood Urine Nitrate Urine Bilirubin Urine Urobilinogen Ur Leukocyte Esterase Urine RBC (Auto) Urine Microscopic WBC Ur Squamous Epith Cells 06/13/17 06/13/17 06/13/17 15:31 17:20 20:57 WBC RBC Hgb Hct MCV MCH MCHC RDW Plt Count MPV Neut % (Auto) Lymph % (Auto) [place] % (Auto) Eos % (Auto) Baso % (Auto) Neut # (Auto) Lymph # (Auto) [place] # (Auto) Eos # (Auto) Baso # (Auto) PT INR APTT D-Dimer, Quantitative 220 Sodium Potassium Chloride Carbon Dioxide Anion Gap BUN Creatinine Est GFR ( Amer) Est GFR (Non-Af Amer) POC Glucose (mg/dL) Random Glucose Calcium Magnesium Total Bilirubin AST ALT Alkaline Phosphatase Troponin I 0.0490 NT-Pro-B Natriuret Pep Total Protein Albumin Globulin Albumin/Globulin Ratio Triglycerides Cholesterol LDL Cholesterol Direct HDL Cholesterol TSH 3rd Generation Urine Color Yellow Urine Clarity Clear Urine pH 5.0 Ur Specific [place] 1.023 Urine Protein 30 Urine Glucose (UA) Neg Urine Ketones 20 Urine Blood Negative Urine Nitrate Negative Urine Bilirubin Negative Urine Urobilinogen 0.2-1.0 Ur Leukocyte Esterase Neg Urine RBC (Auto) < 1 Urine Microscopic WBC 1 Ur Squamous Epith Cells < 1 06/13/17 06/14/17 06/14/17 22:50 02:56 05:35 WBC RBC Hgb Hct MCV MCH MCHC RDW Plt Count MPV Neut % (Auto) Lymph % (Auto) [place] % (Auto) Eos % (Auto) Baso % (Auto) Neut # (Auto) Lymph # (Auto) [place] # (Auto) Eos # (Auto) Baso # (Auto) PT INR APTT D-Dimer, Quantitative Sodium Potassium Chloride Carbon Dioxide Anion Gap BUN Creatinine Est GFR ( Amer) Est GFR (Non-Af Amer) POC Glucose (mg/dL) 60 L 57 L Random Glucose Calcium Magnesium Total Bilirubin AST ALT Alkaline Phosphatase Troponin I 0.0430 NT-Pro-B Natriuret Pep Total Protein Albumin Globulin Albumin/Globulin Ratio Triglycerides Cholesterol LDL Cholesterol Direct HDL Cholesterol TSH 3rd Generation Urine Color Urine Clarity Urine pH Ur Specific [place] Urine Protein Urine Glucose (UA) Urine Ketones Urine Blood Urine Nitrate Urine Bilirubin Urine Urobilinogen Ur Leukocyte Esterase Urine RBC (Auto) Urine Microscopic WBC Ur Squamous Epith Cells 06/14/17 06/14/17 06:15 06:15 WBC 5.9 RBC 3.35 L Hgb 11.4 L Hct 34.5 L MCV 103.0 H MCH 34.2 H MCHC 33.2 RDW 14.7 H Plt Count 248 MPV Neut % (Auto) Lymph % (Auto) [place] % (Auto) Eos % (Auto) Baso % (Auto) Neut # (Auto) Lymph # (Auto) [place] # (Auto) Eos # (Auto) Baso # (Auto) PT INR APTT D-Dimer, Quantitative Sodium 142 Potassium 3.6 Chloride 101 Carbon Dioxide 30 Anion Gap 15 BUN 20 Creatinine 1.4 Est GFR ( Amer) > 60 Est GFR (Non-Af Amer) 50 POC Glucose (mg/dL) Random Glucose 128 H Calcium 9.2 Magnesium 1.8 Total Bilirubin AST ALT Alkaline Phosphatase Troponin I NT-Pro-B Natriuret Pep Total Protein Albumin Globulin Albumin/Globulin Ratio Triglycerides 87 D Cholesterol 170 LDL Cholesterol Direct 70 HDL Cholesterol 67 TSH 3rd Generation 1.66 Urine Color Urine Clarity Urine pH Ur Specific [place] Urine Protein Urine Glucose (UA) Urine Ketones Urine Blood Urine Nitrate Urine Bilirubin Urine Urobilinogen Ur Leukocyte Esterase Urine RBC (Auto) Urine Microscopic WBC Ur Squamous Epith Cells
[2017-06-14] MEDS ORDERED: Pantoprazole 40 mg EC Tab PO SCH (09:00)
[2017-06-14] MEDS ORDERED: DASATINIB 100 MG PO SCH (09:00)
[2017-06-14] MEDS ORDERED: Multivitamin With Minerals Tab PO SCH (09:00)
[2017-06-14] MEDS ORDERED: GlipiZIDE 5 mg SR Tab PO SCH (09:00)
[2017-06-14] MEDS ORDERED: Enoxaparin 40 mg Syringe SC SCH (09:00)
--- NOTE | 2017-06-14 09:26 | CP.PCM.HP ---
History of Present Illness - History of Present Illness History of Present Illness: CC: Chest PAin HPI: A 71yoM presented with midsternal CP X 4 days, 8/10 Intermittent worse with ambulation and Climbing stairs associated with SOB. Denies nausea, vomiting, palpitations. Had a cardiac cath in the reent past which was normal study. Denies cough or fever. Present on Admission - Present on Admission Any Indicators Present on Admission: No Review of Systems - Review of Systems All systems: reviewed and no additional remarkable complaints except - Cardiovascular Cardiovascular: As Per HPI - Respiratory Respiratory: As Per HPI Past Patient History - Tetanus Immunizations Tetanus Immunization: Unknown - Past Medical History & Family History Past Medical History?: Yes Past Family History: Reviewed and not pertinent - Past Social History Smoking Status: Never Smoked Alcohol: None Drugs: Denies - CARDIAC Hx Cardiac Disorders: Yes Hx Congestive Heart Failure: (?) Hx Hypercholesterolemia: No Hx Hypertension: Yes - PULMONARY Hx Respiratory Disorders: No Hx Asthma: No - NEUROLOGICAL Hx Neurological Disorder: Yes Hx Dementia: Yes - HEENT Hx HEENT Problems: No - RENAL Hx Chronic Kidney Disease: Yes - ENDOCRINE/METABOLIC Hx Endocrine Disorders: Yes Hx Diabetes Mellitus Type 2: Yes - HEMATOLOGICAL/ONCOLOGICAL Hx Blood Disorders: Yes Hx AIDS: No Hx Anemia: Yes Hx Human Immunodeficiency Virus (HIV): No - INTEGUMENTARY Hx Dermatological Problems: No - MUSCULOSKELETAL/RHEUMATOLOGICAL Hx Musculoskeletal Disorders: No Hx Falls: No - GASTROINTESTINAL Hx Gastrointestinal Disorders: Yes Hx Diverticulitis: Yes Hx Gastritis: Yes - GENITOURINARY/GYNECOLOGICAL Hx Genitourinary Disorders: No - PSYCHIATRIC Hx Psychophysiologic Disorder: No Hx Substance Use: No - SURGICAL HISTORY Hx Surgeries: Yes Hx Herniorrhaphy: Yes (x2) Other/Comment: inguinal and umbilical hernia repair - ANESTHESIA Hx Anesthesia: Yes Hx Anesthesia Reactions: No Hx Malignant Hyperthermia: No Meds Allergies/Adverse Reactions: Allergies Allergy/AdvReac Type Severity Reaction Status Date / Time Penicillins Allergy RASH Verified 06/13/17 12:56 Physical Exam - Constitutional Appears: Well - Head Exam Head Exam: ATRAUMATIC, NORMAL INSPECTION, NORMOCEPHALIC - Eye Exam Eye Exam: EOMI, Normal appearance, PERRL Pupil Exam: NORMAL ACCOMODATION, PERRL - ENT Exam ENT Exam: Mucous Membranes Moist, Normal Exam - Neck Exam Neck exam: Positive for: Normal Inspection - Respiratory Exam Respiratory Exam: Clear to Auscultation Bilateral, NORMAL BREATHING PATTERN - Cardiovascular Exam Cardiovascular Exam: REGULAR RHYTHM, +S1, +S2 - GI/Abdominal Exam GI & Abdominal Exam: Normal Bowel Sounds, Soft. absent: Tenderness - Extremities Exam Extremities exam: Positive for: normal inspection - Back Exam Back exam: NORMAL INSPECTION - Neurological Exam Neurological exam: Alert, CN II-XII Intact, Normal Gait, Oriented x3, Reflexes Normal - Psychiatric Exam Psychiatric exam: Normal Affect, Normal Mood - Skin Skin Exam: Dry, Intact, Normal Color, Warm Results - Vital Signs Recent Vital Signs: Last Vital Signs Temp 97.9 F 06/14/17 08:37 Pulse 57 L 06/14/17 09:21 Resp 18 06/14/17 08:37 BP 142/67 06/14/17 09:21 Pulse Ox 97 06/14/17 08:37 - Labs Result Diagrams: 06/14/17 06:15 06/14/17 06:15 Labs: Laboratory Results - last 24 hr 06/13/17 06/13/17 06/13/17 14:26 14:26 14:26 WBC 9.6 D RBC 3.52 L Hgb 12.1 Hct 36.0 MCV 102.5 H MCH 34.3 H MCHC 33.5 RDW 14.8 H Plt Count 250 MPV 7.0 L Neut % (Auto) 69.3 Lymph % (Auto) 21.3 [place] % (Auto) 8.4 Eos % (Auto) 0.2 Baso % (Auto) 0.8 Neut # (Auto) 6.7 Lymph # (Auto) 2.1 [place] # (Auto) 0.8 Eos # (Auto) 0.0 Baso # (Auto) 0.1 PT 11.0 INR 1.0 APTT 31.8 D-Dimer, Quantitative Sodium 144 Potassium 3.9 Chloride 104 Carbon Dioxide 25 Anion Gap 19 BUN 21 H Creatinine 1.4 Est GFR ( Amer) > 60 Est GFR (Non-Af Amer) 50 POC Glucose (mg/dL) Random Glucose 75 Calcium 9.3 Magnesium Total Bilirubin 0.8 AST 73 H D ALT 74 H D Alkaline Phosphatase 56 Troponin I 0.0430 NT-Pro-B Natriuret Pep 2530 H Total Protein 6.9 Albumin 3.7 Globulin 3.2 Albumin/Globulin Ratio 1.2 Triglycerides Cholesterol LDL Cholesterol Direct HDL Cholesterol TSH 3rd Generation Urine Color Urine Clarity Urine pH Ur Specific [place] Urine Protein Urine Glucose (UA) Urine Ketones Urine Blood Urine Nitrate Urine Bilirubin Urine Urobilinogen Ur Leukocyte Esterase Urine RBC (Auto) Urine Microscopic WBC Ur Squamous Epith Cells 06/13/17 06/13/17 06/13/17 15:31 17:20 20:57 WBC RBC Hgb Hct MCV MCH MCHC RDW Plt Count MPV Neut % (Auto) Lymph % (Auto) [place] % (Auto) Eos % (Auto) Baso % (Auto) Neut # (Auto) Lymph # (Auto) [place] # (Auto) Eos # (Auto) Baso # (Auto) PT INR APTT D-Dimer, Quantitative 220 Sodium Potassium Chloride Carbon Dioxide Anion Gap BUN Creatinine Est GFR ( Amer) Est GFR (Non-Af Amer) POC Glucose (mg/dL) Random Glucose Calcium Magnesium Total Bilirubin AST ALT Alkaline Phosphatase Troponin I 0.0490 NT-Pro-B Natriuret Pep Total Protein Albumin Globulin Albumin/Globulin Ratio Triglycerides Cholesterol LDL Cholesterol Direct HDL Cholesterol TSH 3rd Generation Urine Color Yellow Urine Clarity Clear Urine pH 5.0 Ur Specific [place] 1.023 Urine Protein 30 Urine Glucose (UA) Neg Urine Ketones 20 Urine Blood Negative Urine Nitrate Negative Urine Bilirubin Negative Urine Urobilinogen 0.2-1.0 Ur Leukocyte Esterase Neg Urine RBC (Auto) < 1 Urine Microscopic WBC 1 Ur Squamous Epith Cells < 1 06/13/17 06/14/17 06/14/17 22:50 02:56 05:35 WBC RBC Hgb Hct MCV MCH MCHC RDW Plt Count MPV Neut % (Auto) Lymph % (Auto) [place] % (Auto) Eos % (Auto) Baso % (Auto) Neut # (Auto) Lymph # (Auto) [place] # (Auto) Eos # (Auto) Baso # (Auto) PT INR APTT D-Dimer, Quantitative Sodium Potassium Chloride Carbon Dioxide Anion Gap BUN Creatinine Est GFR ( Amer) Est GFR (Non-Af Amer) POC Glucose (mg/dL) 60 L 57 L Random Glucose Calcium Magnesium Total Bilirubin AST ALT Alkaline Phosphatase Troponin I 0.0430 NT-Pro-B Natriuret Pep Total Protein Albumin Globulin Albumin/Globulin Ratio Triglycerides Cholesterol LDL Cholesterol Direct HDL Cholesterol TSH 3rd Generation Urine Color Urine Clarity Urine pH Ur Specific [place] Urine Protein Urine Glucose (UA) Urine Ketones Urine Blood Urine Nitrate Urine Bilirubin Urine Urobilinogen Ur Leukocyte Esterase Urine RBC (Auto) Urine Microscopic WBC Ur Squamous Epith Cells 06/14/17 06/14/17 06:15 06:15 WBC 5.9 RBC 3.35 L Hgb 11.4 L Hct 34.5 L MCV 103.0 H MCH 34.2 H MCHC 33.2 RDW 14.7 H Plt Count 248 MPV Neut % (Auto) Lymph % (Auto) [place] % (Auto) Eos % (Auto) Baso % (Auto) Neut # (Auto) Lymph # (Auto) [place] # (Auto) Eos # (Auto) Baso # (Auto) PT INR APTT D-Dimer, Quantitative Sodium 142 Potassium 3.6 Chloride 101 Carbon Dioxide 30 Anion Gap 15 BUN 20 Creatinine 1.4 Est GFR ( Amer) > 60 Est GFR (Non-Af Amer) 50 POC Glucose (mg/dL) Random Glucose 128 H Calcium 9.2 Magnesium 1.8 Total Bilirubin AST ALT Alkaline Phosphatase Troponin I NT-Pro-B Natriuret Pep Total Protein Albumin Globulin Albumin/Globulin Ratio Triglycerides 87 D Cholesterol 170 LDL Cholesterol Direct 70 HDL Cholesterol 67 TSH 3rd Generation 1.66 Urine Color Urine Clarity Urine pH Ur Specific [place] Urine Protein Urine Glucose (UA) Urine Ketones Urine Blood Urine Nitrate Urine Bilirubin Urine Urobilinogen Ur Leukocyte Esterase Urine RBC (Auto) Urine Microscopic WBC Ur Squamous Epith Cells - EKG Data EKG shows normal: Sinus rhythm - Imaging and Cardiology Chest x-ray Status: Report reviewed by me Additional comment: No Active disease
--- NOTE | 2017-06-14 09:30 | CP.PCM.DIS ---
Provider - Provider Date of Admission: 06/13/17 16:14 Attending physician: Luis Gunn MD Time Spent in preparation of Discharge (in minutes): 20 Hospital Course - Lab Results Lab Results: Most Recent Lab Values WBC 5.9 K/uL (4.8-10.8) 06/14/17 06:15 RBC 3.35 Mil/uL (4.40-5.90) L 06/14/17 06:15 Hgb 11.4 g/dL (12.0-18.0) L 06/14/17 06:15 Hct 34.5 % (35.0-51.0) L 06/14/17 06:15 MCV 103.0 fl (80.0-94.0) H 06/14/17 06:15 MCH 34.2 pg (27.0-31.0) H 06/14/17 06:15 MCHC 33.2 g/dL (33.0-37.0) 06/14/17 06:15 RDW 14.7 % (11.5-14.5) H 06/14/17 06:15 Plt Count 248 K/uL (130-400) 06/14/17 06:15 MPV 7.0 fl (7.2-11.7) L 06/13/17 14:26 Neut % (Auto) 69.3 % (50.0-75.0) 06/13/17 14:26 Lymph % (Auto) 21.3 % (20.0-40.0) 06/13/17 14:26 [place] % (Auto) 8.4 % (0.0-10.0) 06/13/17 14:26 Eos % (Auto) 0.2 % (0.0-4.0) 06/13/17 14:26 Baso % (Auto) 0.8 % (0.0-2.0) 06/13/17 14:26 Neut # (Auto) 6.7 K/uL (1.8-7.0) 06/13/17 14:26 Lymph # (Auto) 2.1 K/uL (1.0-4.3) 06/13/17 14:26 [place] # (Auto) 0.8 K/uL (0.0-0.8) 06/13/17 14:26 Eos # (Auto) 0.0 K/uL (0.0-0.7) 06/13/17 14:26 Baso # (Auto) 0.1 K/uL (0.0-0.2) 06/13/17 14:26 PT 11.0 Seconds (9.8-13.1) 06/13/17 14:26 INR 1.0 (0.9-1.2) 06/13/17 14:26 APTT 31.8 Seconds (25.6-37.1) 06/13/17 14:26 D-Dimer, Quantitative 220 ng/mlDDU (0-230) 06/13/17 15:31 Sodium 142 mmol/l (132-148) 06/14/17 06:15 Potassium 3.6 MMOL/L (3.6-5.0) 06/14/17 06:15 Chloride 101 mmol/L (98-107) 06/14/17 06:15 Carbon Dioxide 30 mmol/L (22-30) 06/14/17 06:15 Anion Gap 15 (10-20) 06/14/17 06:15 BUN 20 mg/dl (9-20) 06/14/17 06:15 Creatinine 1.4 mg/dl (0.8-1.5) 06/14/17 06:15 Est GFR ( Amer) > 60 06/14/17 06:15 Est GFR (Non-Af Amer) 50 06/14/17 06:15 POC Glucose (mg/dL) 57 mg/dL (65-110) L 06/14/17 05:35 Random Glucose 128 mg/dL (75-110) H 06/14/17 06:15 Calcium 9.2 mg/dL (8.4-10.2) 06/14/17 06:15 Magnesium 1.8 MG/DL (1.6-2.3) 06/14/17 06:15 Total Bilirubin 0.8 mg/dl (0.2-1.3) 06/13/17 14:26 AST 73 U/L (17-59) H D 06/13/17 14:26 ALT 74 U/L (21-72) H D 06/13/17 14:26 Alkaline Phosphatase 56 U/L (38-126) 06/13/17 14:26 Troponin I 0.0430 ng/mL (0.00-0.120) 06/14/17 02:56 NT-Pro-B Natriuret Pep 2530 pg/ml (0-900) H 06/13/17 14:26 Total Protein 6.9 G/DL (6.3-8.2) 06/13/17 14:26 Albumin 3.7 g/dL (3.5-5.0) 06/13/17 14:26 Globulin 3.2 gm/dL (2.2-3.9) 06/13/17 14:26 Albumin/Globulin Ratio 1.2 (1.0-2.1) 06/13/17 14:26 Triglycerides 87 mg/DL (0-149) D 06/14/17 06:15 Cholesterol 170 mg/dL (0-199) 06/14/17 06:15 LDL Cholesterol Direct 70 mg/dL (0-129) 06/14/17 06:15 HDL Cholesterol 67 MG/DL (30-70) 06/14/17 06:15 TSH 3rd Generation 1.66 mIU/ML (0.46-4.68) 06/14/17 06:15 Urine Color Yellow (YELLOW) 06/13/17 17:20 Urine Clarity Clear (Clear) 06/13/17 17:20 Urine pH 5.0 (5.0-8.0) 06/13/17 17:20 Ur Specific [place] 1.023 (1.003-1.030) 06/13/17 17:20 Urine Protein 30 mg/dL (NEGATIVE) 06/13/17 17:20 Urine Glucose (UA) Neg mg/dL (Normal) 06/13/17 17:20 Urine Ketones 20 mg/dL (NEGATIVE) 06/13/17 17:20 Urine Blood Negative (NEGATIVE) 06/13/17 17:20 Urine Nitrate Negative (NEGATIVE) 06/13/17 17:20 Urine Bilirubin Negative (NEGATIVE) 06/13/17 17:20 Urine Urobilinogen 0.2-1.0 mg/dL (0.2-1.0) 06/13/17 17:20 Ur Leukocyte Esterase Neg [place]minder/uL (Negative) 06/13/17 17:20 Urine RBC (Auto) < 1 /hpf (0-3) 06/13/17 17:20 Urine Microscopic WBC 1 /hpf (0-5) 06/13/17 17:20 Ur Squamous Epith Cells < 1 /hpf (0-5) 06/13/17 17:20 Discharge Exam - Head Exam Head Exam: ATRAUMATIC, NORMAL INSPECTION Discharge Plan - Follow Up Plan Condition: FAIR Disposition: HOME/ ROUTINE
--- NOTE | 2017-06-14 11:10 | CARD ---
APPROVED REPORT EXAM: Two-dimensional and M-mode echocardiogram with Doppler and color Doppler. Other Information Quality : GoodRhythm : NSR INDICATION Chest Pain 2D DIMENSIONS IVSd1.42 (0.7-1.1cm)LVDd6.15 (3.9-5.9cm) LVOT Diameter2.61 (1.8-2.4cm)PWd1.00 (0.7-1.1cm) IVSs1.82 (0.8-1.2cm)LVDs4.59 (2.5-4.0cm) FS (%) 25.4 %PWs1.56 (0.8-1.2cm) M-Mode DIMENSIONS Left Atrium (MM)5.34 (2.5-4.0cm)IVSd1.00 (0.7-1.1cm) Aortic Root3.16 (2.2-3.7cm)LVDd7.53 (4.0-5.6cm) Aortic Cusp Exc.2.22 (1.5-2.0cm)PWd1.13 (0.7-1.1cm) IVSs1.88 cmFS (%) 41 % LVDs4.41 (2.0-3.8cm)PWs1.41 cm Mitral Valve MV E Iekdafwn89.4cm/sMV DECEL [id number] A Khdbboym14.3cm/s MV ACN26alS/A ratio1.1MVA (PHT)3.98cm2 TDI Lateral E' Peak V7.90cm/sMedial E' Peak V8.96cm/sE/Lateral E'8.8 E/Medial E'7.7 Pulmonary Valve PV Peak Lzmuqdzf811.6cm/s Tricuspid Valve TR Peak Sfrnrrky119yq/sRAP [id number] Peak Gr.18mmHg [id number] LEFT VENTRICLE The Left Ventricle is moderately dilated. There is normal left ventricular wall thickness. The left ventricular function is normal. The left ventricular ejection fraction is within the normal range. The Ejection Fraction is 55-60%. There is normal LV segmental wall motion. The left ventricular diastolic function is normal. RIGHT VENTRICLE The right ventricle is normal size. The right ventricular systolic function is normal. ATRIA The left atrium is mildly dilated. The right atrium size is normal. AORTIC VALVE The aortic valve is normal in structure. No aortic regurgitation is present. There is no aortic valvular stenosis. MITRAL VALVE The mitral valve is normal in structure. There is no mitral valve stenosis. There is no mitral valve regurgitation noted. TRICUSPID VALVE The tricuspid valve is normal in structure. There is no tricuspid valve regurgitation noted. There is no tricuspid valve stenosis. PULMONIC VALVE The pulmonary valve is normal in structure. There is no pulmonic valvular regurgitation. GREAT VESSELS The aortic root is normal in size. The IVC is normal in size and collapses >50% with inspiration. PERICARDIAL EFFUSION The pericardium appears normal. <Conclusion> The Left Ventricle is moderately dilated. There is normal left ventricular wall thickness. The left ventricular function is normal. The left ventricular ejection fraction is within the normal range. The Ejection Fraction is 55-60%. The left atrium is mildly dilated.
--- NOTE | 2017-06-14 11:30 | CARD ---
APPROVED REPORT EKG Measurement Heart [id number] <Conclusion> Normal sinus rhythm with sinus arrhythmia Right bundle branch block Voltage criteria for left ventricular hypertrophy Abnormal ECG
[2017-06-15] MEDS ORDERED: Ergocalciferol 50,000 Intl Units Cap PO SCH (09:00)
--- NOTE | 2017-06-15 10:31 | CARD ---
APPROVED REPORT EKG Measurement Heart [id number] ID [id number] <Conclusion> Sinus rhythm with premature atrial complexes Right bundle branch block Voltage criteria for left ventricular hypertrophy Abnormal ECG
[2017-06-16 13:39] VITALS: O2SAT 98
== END 2017-06-14 11:15 | disposition home or self-care (01) ==
LOC: H.ER 12:49 → H.ERHOLD 16:14 → H.TEL 17:54
PROVIDERS: ADMIT Internal Medicine; ATTEND Internal Medicine
DX: I13.0 Hypertensive heart and chronic kidney disease with heart failure and stage 1 through stage 4 chronic kidney disease, or unspecified chronic kidney disease (principal); I25.110 Atherosclerotic heart disease of native coronary artery with unstable angina pectoris; I50.9 Heart failure, unspecified; N18.9 Chronic kidney disease, unspecified; Z79.51 Long term (current) use of inhaled steroids; Z79.82 Long term (current) use of aspirin; D64.9 Anemia, unspecified; K29.70 Gastritis, unspecified, without bleeding; E11.22 Type 2 diabetes mellitus with diabetic chronic kidney disease; F03.90 Unspecified dementia, unspecified severity, without behavioral disturbance, psychotic disturbance, mood disturbance, and anxiety
CPT/HCPCS: 36415; 71045; 80048; 80053; 80061; 81003; 82948; 83735; 83880; 84443; 84484; 85025; 85027; 85378; 85610; 85730; 93005; 93306; 99285; G0378; J1650

== ENCOUNTER 2017-12-03 06:51 | Emergency (ER) | payer MEDICARE, OTHER ==
[2017-12-03 07:01] VITALS: TEMP 97.8; BMI 31.6
[2017-12-03 07:09] VITALS: RESP 16
--- NOTE | 2017-12-03 07:35 | ED PDOC ---
HPI: Abdomen Time Seen by Provider: 12/03/17 07:19 Chief Complaint (Nursing): Abdominal Pain Chief Complaint (Provider): Abdominal Pain History Per: Patient History/Exam Limitations: no limitations Onset/Duration Of Symptoms: Sudden Onset (0400) Current Symptoms Are (Timing): Still Present Additional Complaint(s): 72 year old male, with a PMHx of CHF, HTN, COPD, CAD, diabetes, SBO, and diverticulitis, presenting for evaluation of left sided abdominal pain onset at 0400. Patient states he began to have severe left sided pain which gradually subsided in intensity, but is now intermittent. Patient denies any fevers, chills, nausea, vomiting, diarrhea, chest pain, difficulty breathing, or shortness of breath. Patient also reports some chronic upper back pain. PMD: Dr. Tobias Past Medical History Reviewed: Historical Data, Nursing Documentation, Vital Signs Vital Signs: Last Vital Signs Temp 97.8 F 12/03/17 07:08 Pulse 61 12/03/17 07:08 Resp 16 12/03/17 07:08 BP 163/96 H 12/03/17 07:08 Pulse Ox 98 12/03/17 07:08 - Medical History PMH: Anemia, CAD, CHF, COPD, Dementia, Diabetes, Diverticulitis, Gastritis, HTN, Malignancy (leukemia), Chronic Kidney Disease Denies: Asthma, HIV, Hypercholesterolemia - Surgical History Surgical History: Hernia Repair (Ventral and inguinal) - Family History Family History: States: Hypertension - Home Medications Home Medications: Ambulatory Orders Medication Instructions Recorded Albuterol HFA [Ventolin HFA 90 2 puff IH Q4 PRN 11/06/16 mcg/actuation (8 g)] Budesonide/Formoterol Fumarate 2 puff IH Q12 11/06/16 [Symbicort 160-4.5 Mcg Inhaler] Dasatinib [Sprycel] 100 mg PO DAILY 11/06/16 Donepezil HCl [Aricept] 5 mg PO HS 11/06/16 Ferrous Sulfate [Feosol] 325 mg PO DAILY 11/06/16 Folic Acid 1 mg PO DAILY 11/06/16 Furosemide [Lasix] 20 mg PO Q48H 11/06/16 Linaclotide [Linzess] 290 mcg PO DAILY PRN 11/06/16 Losartan Potassium 50 mg PO DAILY 11/06/16 Nitroglycerin [Nitrostat] 0.4 mg SL Q5MIN PRN 11/06/16 Omeprazole 40 mg PO DAILY 11/06/16 Aspirin [Ecotrin] 81 mg PO DAILY 06/13/17 Ergocalciferol (Vitamin D2) 50,000 unit PO SUN 06/13/17 [Vitamin D2] Glipizide [Glipizide ER] 5 mg PO DAILY 06/13/17 Metoprolol Tartrate [Lopressor] 25 mg PO Q12 06/13/17 Olopatadine 0.1% Opht [Patanol 1 drop EACHEYE DAILY PRN 06/13/17 0.1% Opht Soln] Budesonide/Formoterol Fumarate 1 spray IH PRN PRN 12/03/17 [Symbicort 160-4.5 Mcg Inhaler] Multivit,Iron,Min 5/Folic Acid 1 tab PO DAILY 12/03/17 [Strovite Forte Caplet] - Allergies Allergies/Adverse Reactions: Allergies Allergy/AdvReac Type Severity Reaction Status Date / Time Penicillins Allergy RASH Verified 12/03/17 07:09 Review of Systems ROS Statement: Except As Marked, All Systems Reviewed And Found Negative Constitutional: Negative for: Fever, Chills Cardiovascular: Negative for: Chest Pain Respiratory: Negative for: Shortness of Breath, SOB with Exertion Gastrointestinal: Positive for: Abdominal Pain. Negative for: Nausea, Vomiting, Diarrhea, Constipation, Melena, Hematochezia, Hematemesis Genitourinary Male: Negative for: Dysuria, Frequency, Incontinence, Hematuria Musculoskeletal: Positive for: Back Pain Physical Exam - Reviewed Nursing Documentation Reviewed: Yes Vital Signs Reviewed: Yes - Physical Exam Appears: Positive for: Non-toxic, No Acute Distress Head Exam: Positive for: ATRAUMATIC, NORMAL INSPECTION, NORMOCEPHALIC Skin: Positive for: Normal Color, Warm, Dry. Negative for: Rash Eye Exam: Positive for: EOMI, Normal appearance, PERRL Neck: Positive for: Normal, Painless ROM, Supple Cardiovascular/Chest: Positive for: Regular Rate, Rhythm. Negative for: Murmur Respiratory: Positive for: Normal Breath Sounds. Negative for: Respiratory Distress Gastrointestinal/Abdominal: Positive for: Normal Exam, Soft. Negative for: Tenderness Back: Positive for: Normal Inspection. Negative for: L CVA Tenderness, R CVA Tenderness, Vertebral Tenderness Extremity: Positive for: Normal ROM. Negative for: Deformity, Swelling Neurologic/Psych: Positive for: Alert, Oriented (x3). Negative for: Motor/Sensory Deficits - Laboratory Results Result Diagrams: 12/03/17 07:50 12/03/17 07:50 - ECG O2 Sat by Pulse Oximetry: 98 (RA) Pulse Ox Interpretation: Normal Medical Decision Making Medical Decision Makin Impression: Abdominal pain. Differential diagnoses include, but are not limited to diverticulitis, colitis, SBO, and possible nephrolithiasis. Plan: -CT abdomen and pelvis w/ IV contrast -BMP -Urine dip -CBC -Reevaluation 1001 FINDINGS: LOWER THORAX: Small sliding hiatal hernia. Cardiomegaly-similar. No pericardial effusion. Coronary artery calcifications. LIVER: Unremarkable. No gross lesion or ductal dilatation. GALLBLADDER AND BILE DUCTS: Unremarkable. PANCREAS: Unremarkable. No gross lesion or ductal dilatation. SPLEEN: Unremarkable. ADRENALS: Unremarkable. No mass. KIDNEYS AND URETERS: Unremarkable. No hydronephrosis. Bilateral small renal hypodense masses probable renal cysts.-similar. None larger than 1.5 cm in size. VASCULATURE: Atherosclerotic vascular calcifications present. No aortic aneurysm. BOWEL: Rectosigmoid redundancy. Moderate stool retention. No obstruction. No gross mural thickening. No gross diverticulitis. APPENDIX: Normal appendix. PERITONEUM: Unremarkable. No free fluid. No free air. LYMPH NODES: Unremarkable. No enlarged lymph nodes. BLADDER: Unremarkable. REPRODUCTIVE: Prostatic calcifications. Mild prostatic prominence-slightly increased since prior exam. BONES: No acute fracture. OTHER FINDINGS: None. IMPRESSION: Moderate stool retention with rectosigmoid redundancy. No bowel obstruction. No diverticulitis. Prostatic calcifications with mild interval prostatic enlargement. Clinical correlation and follow-up recommended. Similar appearing bilateral renal hypodense masses-probable renal cysts. No interval changes perceived. Other findings as above. CT and labs reviewed. Ct significant for renal cysts. Findings discussed with patient who agrees with plan for discharge. Patient advised to follow up with PMD for further evaluation. Return for new or worsening symptoms. Scribe Attestation: Documented by Luis Bhatti, acting as a scribe for Nikki Fallon MD. Provider Scribe Attestation: All medical record entries made by the Scribe were at my direction and personally dictated by me. I have reviewed the chart and agree that the record accurately reflects my personal performance of the history, physical exam, medical decision making, and the department course for this patient. I have also personally directed, reviewed, and agree with the discharge instructions and disposition. Disposition - Clinical Impression Clinical Impression: Renal cyst, Abdominal pain - Patient ED Disposition Is Patient to be Admitted: No Doctor Will See Patient In The: Office Counseled Patient/Family Regarding: Studies Performed, Diagnosis, Need For Followup - Disposition Referrals: Adriana Tobias MD [Medical Doctor] - Disposition: Routine/Home Disposition Time: 11:19 Condition: STABLE Additional Instructions: AQUILINO RODAS, thank you for letting us take care of you today. Your provider was Nikki Fallon MD and you were treated for ABD PAIN. The emergency medical care you received today was directed at your acute symptoms. If you were prescribed any medication, please fill it and take as directed. It may take several days for your symptoms to resolve. Return to the Emergency Department if your symptoms worsen, do not improve, or if you have any other problems. Please contact your doctor or call one of the physicians/clinics you have been referred to that are listed on the Patient Visit Information form that is included in your discharge packet. Bring any paperwork you were given at discharge with you along with any medications you are taking to your follow up visit. Our treatment cannot replace ongoing medical care by a primary care provider outside of the emergency department. Thank you for allowing the [facility] team to be part of your care today. If you had an X-Ray or CT scan: A Radiologist will review the ED reading if any change in treatment is needed we will contact you. If you had a blood, urine, or wound culture: It will take several days for the results, if any change in treatment is needed we will contact you. If you had an STI test: It will take 48 hours for the results. Please call after 1 week if you have not heard back. Instructions: Constipation in Adults Print Language: GUAMANIAN
[2017-12-03 08:21] LABS: BASO % 0.7 % (0.0-2.0); EOS # 0.1 K/uL (0.0-0.7); EOS % 0.9 % (0.0-4.0); HEMOGLOBIN 12.5 g/dL (12.0-18.0); LYMPH # 0.9 K/uL (1.0-4.3); MEAN CELL VOLUME 102.4 fl (80.0-94.0); MEAN CORPUSCULAR HEMOGLOBIN 34.8 pg (27.0-31.0); MEAN PLATELET VOLUME 7.8 fl (7.2-11.7); MONO # 0.6 K/uL (0.0-0.8); MONO % 8.5 % (0.0-10.0); NEUT # 5.3 K/uL (1.8-7.0); NEUT % 76.9 % (50.0-75.0); NRBC % 0.1 % (0.0-0.0); RBC 3.58 Mil/uL (4.40-5.90); RED CELL DISTRIBUTION WIDTH 14.4 % (11.5-14.5); WHITE BLOOD COUNT 6.8 K/uL (4.8-10.8)
[2017-12-03 08:31] LABS: BLOOD UREA NITROGEN 19 mg/dl (9-20); CALCIUM 9.7 mg/dL (8.4-10.2); GFR NON-AFRICAN AMERICAN 54
[2017-12-03] MEDS ORDERED: Sodium Chloride 0.9% 50 ML IV ONE (08:42)
[2017-12-03] MEDS ORDERED: Iohexol 300 100 ML IJ ONE (08:43)
--- NOTE | 2017-12-03 10:24 | CT ---
Date of service: 12/03/2017 PROCEDURE: CT Abdomen and Pelvis with contrast HISTORY: LLQ pain COMPARISON: 11/06/2016 TECHNIQUE: Contrast dose: 95 mL of Omnipaque 300 Radiation dose: Total exam DLP = 764 mGy-cm. This CT exam was performed using one or more of the following dose reduction techniques: Automated exposure control, adjustment of the mA and/or kV according to patient size, and/or use of iterative reconstruction technique. FINDINGS: LOWER THORAX: Small sliding hiatal hernia. Cardiomegaly-similar. No pericardial effusion. Coronary artery calcifications. LIVER: Unremarkable. No gross lesion or ductal dilatation. GALLBLADDER AND BILE DUCTS: Unremarkable. PANCREAS: Unremarkable. No gross lesion or ductal dilatation. SPLEEN: Unremarkable. ADRENALS: Unremarkable. No mass. KIDNEYS AND URETERS: Unremarkable. No hydronephrosis. Bilateral small renal hypodense masses probable renal cysts.-similar. None larger than 1.5 cm in size. VASCULATURE: Atherosclerotic vascular calcifications present. No aortic aneurysm. BOWEL: Rectosigmoid redundancy. Moderate stool retention. No obstruction. No gross mural thickening. No gross diverticulitis. APPENDIX: Normal appendix. PERITONEUM: Unremarkable. No free fluid. No free air. LYMPH NODES: Unremarkable. No enlarged lymph nodes. BLADDER: Unremarkable. REPRODUCTIVE: Prostatic calcifications. Mild prostatic prominence-slightly increased since prior exam. BONES: No acute fracture. OTHER FINDINGS: None. IMPRESSION: Moderate stool retention with rectosigmoid redundancy. No bowel obstruction. No diverticulitis. Prostatic calcifications with mild interval prostatic enlargement. Clinical correlation and follow-up recommended. Similar appearing bilateral renal hypodense masses-probable renal cysts. No interval changes perceived. Other findings as above.
[2017-12-03 11:26] VITALS: BP 135/68; PULSE 77; O2SAT 100
--- NOTE | 2017-12-03 13:50 | CARD ---
APPROVED REPORT Date of service: 12/03/2017 EKG Measurement Heart [id number] <Conclusion> Sinus bradycardia Right bundle branch block Moderate voltage criteria for LVH, may be normal variant Abnormal ECG
== END 2017-12-03 11:26 | disposition home or self-care (01) ==
LOC: H.ER 06:51
DX: N28.1 Cyst of kidney, acquired (principal); R10.9 Unspecified abdominal pain; F03.90 Unspecified dementia, unspecified severity, without behavioral disturbance, psychotic disturbance, mood disturbance, and anxiety; I13.0 Hypertensive heart and chronic kidney disease with heart failure and stage 1 through stage 4 chronic kidney disease, or unspecified chronic kidney disease; Z79.84 Long term (current) use of oral hypoglycemic drugs; Z79.899 Other long term (current) drug therapy; Z88.0 Allergy status to penicillin
CPT/HCPCS: 74177; 80048; 82948; 85025; 93005; 99283; Q9967

== ENCOUNTER 2017-12-27 16:29 | Emergency (ER) | payer MEDICARE, OTHER ==
[2017-12-27 16:30] VITALS: BMI 31.6
[2017-12-27 16:53] VITALS: BP 112/68; PULSE 64; RESP 16; TEMP 98.3; O2SAT 97
--- NOTE | 2017-12-27 17:17 | ED PDOC ---
HPI: Back Time Seen by Provider: 12/27/17 17:00 Chief Complaint (Nursing): Back Pain Chief Complaint (Provider): Back Pain History Per: Patient History/Exam Limitations: no limitations Onset/Duration Of Symptoms: Hrs (this morning) Current Symptoms Are (Timing): Still Present Quality Of Discomfort: "Pain" Additional Complaint(s): 72 year old male with a history of dm, htn and cad presents to the ED with lower back pain since this morning associated burning sensation in both feet. Patient states symptoms are worse when lying down. He denies any injury, weakness, fever, urinary symptoms or any other medical complaints. PMD: Adriana Tobias Past Medical History Reviewed: Historical Data, Nursing Documentation, Vital Signs Vital Signs: Last Vital Signs Temp 98.3 F 12/27/17 16:50 Pulse 64 12/27/17 16:50 Resp 16 12/27/17 16:50 BP 112/68 12/27/17 16:50 Pulse Ox 97 12/27/17 16:50 - Medical History PMH: Anemia, Arthritis, Bronchitis, CAD, CHF, COPD, Dementia, Diabetes, Diverticulitis, Gastritis, Hiatal Hernia, HTN, Hyperlipidemia, Malignancy (leukemia), Obstructive Bowel (small bowel), Chronic Kidney Disease Denies: Asthma, HIV, Hypercholesterolemia - Surgical History Surgical History: Hernia Repair (Ventral and inguinal) - Family History Family History: States: Unknown Family Hx, Hypertension - Home Medications Home Medications: Ambulatory Orders Medication Instructions Recorded Albuterol HFA [Ventolin HFA 90 2 puff IH Q4 PRN 11/06/16 mcg/actuation (8 g)] Budesonide/Formoterol Fumarate 2 puff IH Q12 11/06/16 [Symbicort 160-4.5 Mcg Inhaler] Dasatinib [Sprycel] 100 mg PO DAILY 11/06/16 Donepezil HCl [Aricept] 5 mg PO HS 11/06/16 Ferrous Sulfate [Feosol] 325 mg PO DAILY 11/06/16 Folic Acid 1 mg PO DAILY 11/06/16 Furosemide [Lasix] 20 mg PO Q48H 11/06/16 Linaclotide [Linzess] 290 mcg PO DAILY PRN 11/06/16 Losartan Potassium 50 mg PO DAILY 11/06/16 Nitroglycerin [Nitrostat] 0.4 mg SL Q5MIN PRN 11/06/16 Omeprazole 40 mg PO DAILY 11/06/16 Aspirin [Ecotrin] 81 mg PO DAILY 06/13/17 Ergocalciferol (Vitamin D2) 50,000 unit PO SUN 06/13/17 [Vitamin D2] Glipizide [Glipizide ER] 5 mg PO DAILY 06/13/17 Metoprolol Tartrate [Lopressor] 25 mg PO Q12 06/13/17 Olopatadine 0.1% Opht [Patanol 1 drop EACHEYE DAILY PRN 06/13/17 0.1% Opht Soln] Budesonide/Formoterol Fumarate 1 spray IH PRN PRN 12/03/17 [Symbicort 160-4.5 Mcg Inhaler] Multivit,Iron,Min 5/Folic Acid 1 tab PO DAILY 12/03/17 [Strovite Forte Caplet] Cyclobenzaprine [Cyclobenzaprine 10 mg PO Q8 #10 tab 12/27/17 HCl] Naproxen [Naprosyn] 500 mg PO Q12H #20 tab 12/27/17 - Allergies Allergies/Adverse Reactions: Allergies Allergy/AdvReac Type Severity Reaction Status Date / Time Penicillins Allergy RASH Verified 12/27/17 16:50 Review of Systems ROS Statement: Except As Marked, All Systems Reviewed And Found Negative Musculoskeletal: Positive for: Back Pain (lower), Other (burning sensation in both feet) Physical Exam - Physical Exam Back: Positive for: Other (paralumbar spasm, no midline tenderness or deformity ) Neurologic/Psych: Positive for: Alert, Oriented (x3). Negative for: Motor/Sensory Deficits - ECG O2 Sat by Pulse Oximetry: 97 (RA) Pulse Ox Interpretation: Normal Medical Decision Making Medical Decision Making: Time: 17:10 Initial Plan: --Flexeril 10 mg PO --Toradol 30 mg IM Scribe Attestation: Documented by Altagracia Landeros, acting as a scribe for Zachery Escobar MD Provider Scribe Attestation: All medical record entries made by the Scribe were at my direction and personally dictated by me. I have reviewed the chart and agree that the record accurately reflects my personal performance of the history, physical exam, medical decision making, and the department course for this patient. I have also personally directed, reviewed, and agree with the discharge instructions and disposition. Disposition - Clinical Impression Clinical Impression: Back strain - Patient ED Disposition Is Patient to be Admitted: No Counseled Patient/Family Regarding: Diagnosis, Need For Followup, Rx Given - Disposition Referrals: [facility] [Outside] Disposition: Routine/Home Disposition Time: 18:39 Condition: FAIR Prescriptions: Cyclobenzaprine [Cyclobenzaprine HCl] 10 mg PO Q8 #10 tab Naproxen [Naprosyn] 500 mg PO Q12H #20 tab Instructions: Low Back Pain in Adults Forms: [facility] (Occitan) Print Language: THAI
== END 2017-12-27 18:48 | disposition home or self-care (01) ==
LOC: H.ER 16:29
DX: S39.012A Strain of muscle, fascia and tendon of lower back, initial encounter (principal); N18.9 Chronic kidney disease, unspecified; J44.9 Chronic obstructive pulmonary disease, unspecified; E11.22 Type 2 diabetes mellitus with diabetic chronic kidney disease; E78.5 Hyperlipidemia, unspecified; F03.90 Unspecified dementia, unspecified severity, without behavioral disturbance, psychotic disturbance, mood disturbance, and anxiety; I13.0 Hypertensive heart and chronic kidney disease with heart failure and stage 1 through stage 4 chronic kidney disease, or unspecified chronic kidney disease; Z88.0 Allergy status to penicillin; Z79.84 Long term (current) use of oral hypoglycemic drugs; Z79.899 Other long term (current) drug therapy
CPT/HCPCS: 96372; 99282; J1885

== ENCOUNTER 2018-02-08 12:16 | Emergency (ER) | payer MEDICARE, OTHER ==
[2018-02-08 12:18] VITALS: BMI 31.6
[2018-02-08 12:35] VITALS: RESP 16; TEMP 98.1; O2SAT 95
--- NOTE | 2018-02-08 12:56 | ED PDOC ---
HPI: Headache Time Seen by Provider: 02/08/18 12:56 Chief Complaint (Nursing): Headache Chief Complaint (Provider): Headache History Per: Patient History/Exam Limitations: no limitations Onset/Duration Of Symptoms: Days Current Symptoms Are (Timing): Still Present Additional Complaint(s): 72 year old male presents to the ED for an evaluation of headache onset yesterda y. Patient states the he noticed the symptoms when he woke up today morning. He reports there was no relief upon taking Advil at 9AM. Also reports he feels weak due to the pain. Otherwise, patient denies any focal weakness, head injury or trouble speaking or walking. PMD: Dr. Tobias Past Medical History Reviewed: Historical Data, Nursing Documentation, Vital Signs Vital Signs: Last Vital Signs Temp 98.1 F 02/08/18 12:32 Pulse 79 02/08/18 12:32 Resp 16 02/08/18 12:32 BP 160/80 H 02/08/18 12:32 Pulse Ox 95 02/08/18 12:32 - Medical History PMH: Anemia, Arthritis, Bronchitis, CAD, CHF, COPD, Dementia, Diabetes, Diverticulitis, Gastritis, Hiatal Hernia, HTN, Hyperlipidemia, Malignancy (leukemia), Obstructive Bowel (small bowel), Chronic Kidney Disease Denies: Asthma, HIV, Hypercholesterolemia - Surgical History Surgical History: Hernia Repair (Ventral and inguinal) - Family History Family History: States: Unknown Family Hx, Hypertension - Home Medications Home Medications: Ambulatory Orders Medication Instructions Recorded Albuterol HFA [Ventolin HFA 90 2 puff IH Q4 PRN 11/06/16 mcg/actuation (8 g)] Budesonide/Formoterol Fumarate 2 puff IH Q12 11/06/16 [Symbicort 160-4.5 Mcg Inhaler] Dasatinib [Sprycel] 100 mg PO DAILY 11/06/16 Donepezil HCl [Aricept] 5 mg PO HS 11/06/16 Ferrous Sulfate [Feosol] 325 mg PO DAILY 11/06/16 Folic Acid 1 mg PO DAILY 11/06/16 Furosemide [Lasix] 20 mg PO Q48H 11/06/16 Linaclotide [Linzess] 290 mcg PO DAILY PRN 11/06/16 Losartan Potassium 50 mg PO DAILY 11/06/16 Nitroglycerin [Nitrostat] 0.4 mg SL Q5MIN PRN 11/06/16 Omeprazole 40 mg PO DAILY 11/06/16 Aspirin [Ecotrin] 81 mg PO DAILY 06/13/17 Ergocalciferol (Vitamin D2) 50,000 unit PO SUN 06/13/17 [Vitamin D2] Glipizide [Glipizide ER] 5 mg PO DAILY 06/13/17 Metoprolol Tartrate [Lopressor] 25 mg PO Q12 06/13/17 Olopatadine 0.1% Opht [Patanol 1 drop EACHEYE DAILY PRN 06/13/17 0.1% Opht Soln] Budesonide/Formoterol Fumarate 1 spray IH PRN PRN 12/03/17 [Symbicort 160-4.5 Mcg Inhaler] Multivit,Iron,Min 5/Folic Acid 1 tab PO DAILY 12/03/17 [Strovite Forte Caplet] Cyclobenzaprine [Cyclobenzaprine 10 mg PO Q8 #10 tab 12/27/17 HCl] Naproxen [Naprosyn] 500 mg PO Q12H #20 tab 12/27/17 - Allergies Allergies/Adverse Reactions: Allergies Allergy/AdvReac Type Severity Reaction Status Date / Time Penicillins Allergy RASH Verified 12/27/17 16:50 Review of Systems ROS Statement: Except As Marked, All Systems Reviewed And Found Negative Constitutional: Positive for: Weakness. Negative for: Fever, Chills Respiratory: Negative for: Cough, Shortness of Breath Neurological: Positive for: Headache. Negative for: Weakness, Numbness, Dizziness Physical Exam - Reviewed Nursing Documentation Reviewed: Yes Vital Signs Reviewed: Yes - Physical Exam Appears: Positive for: Non-toxic, No Acute Distress Head Exam: Positive for: ATRAUMATIC, NORMOCEPHALIC. Negative for: NORMAL INSPECTION (tenderness to touch superior aspect of scalp ) Skin: Positive for: Normal Color, Warm, Dry. Negative for: Rash Cardiovascular/Chest: Positive for: Regular Rate, Rhythm. Negative for: Murmur Respiratory: Positive for: Normal Breath Sounds. Negative for: Decreased Breath Sounds, Wheezing, Respiratory Distress Extremity: Positive for: Normal ROM. Negative for: Tenderness, Pedal Edema, Deformity Neurologic/Psych: Positive for: Alert, Oriented (x3). Negative for: Motor/Sensory Deficits - Laboratory Results Result Diagrams: 02/08/18 13:00 02/08/18 13:00 - ECG O2 Sat by Pulse Oximetry: 95 (RA) Pulse Ox Interpretation: Normal Medical Decision Making Medical Decision Making: Time: 1249 Initial Plan: Head w/o Contrast CT CMP CBC w/ Differential Acetaminophen 650mg Accucheck Reevaluation Time: 1356 PROCEDURE: CT HEAD WITHOUT CONTRAST. HISTORY: headache COMPARISON: Noncontrast head CT 03/02/2016. TECHNIQUE: Axial computed tomography images were obtained through the head/brain without intravenous contrast. Radiation dose: Total exam DLP = 817.55 mGy-cm. This CT exam was performed using one or more of the following dose reduction techniques: Automated exposure control, adjustment of the mA and/or kV according to patient size, and/or use of iterative reconstruction technique. FINDINGS: HEMORRHAGE: No intracranial hemorrhage. BRAIN: Good corticomedullary differentiation is seen. Reiterated diffuse cerebral atrophy and chronic microangiopathy. No suspicious extra-axial fluid collection is identified and the midline brain anatomy appears grossly nonfocal as imaged. No mass effect identified. VENTRICLES: Unremarkable. No hydrocephalus. CALVARIUM: Unremarkable. PARANASAL SINUSES: Unremarkable as visualized. No significant inflammatory changes. MASTOID AIR CELLS: Unremarkable as visualized. No inflammatory changes. OTHER FINDINGS: None. IMPRESSION: Unremarkable unenhanced head CT. Scribe Attestation: Documented by Ofelia Mansfield, acting as a scribe for Ana Cali PA-C. Provider Scribe Attestation: All medical record entries made by the Scribe were at my direction and personally dictated by me. I have reviewed the chart and agree that the record accurately reflects my personal performance of the history, physical exam, medical decision making, and the department course for this patient. I have also personally directed, reviewed, and agree with the discharge instructions and disposition Disposition - Clinical Impression Clinical Impression: Headache - Patient ED Disposition Is Patient to be Admitted: No - Disposition Disposition: Routine/Home Disposition Time: 14:38 Condition: FAIR Instructions: Tension Headache Print Language: TAJIK
[2018-02-08 13:12] LABS: BASO % 0.7 % (0.0-2.0); EOS % 0.7 % (0.0-4.0); HEMOGLOBIN 12.2 g/dL (12.0-18.0); LYMPH # 0.9 K/uL (1.0-4.3); LYMPH % 19.5 % (20.0-40.0); MEAN CELL VOLUME 101.7 fl (80.0-94.0); MEAN CORPUSCULAR HEMOGLOBIN 34.1 pg (27.0-31.0); MEAN CORPUSCULAR HGB CONC 33.5 g/dL (33.0-37.0); MEAN PLATELET VOLUME 7.1 fl (7.2-11.7); MONO # 0.5 K/uL (0.0-0.8); MONO % 10.4 % (0.0-10.0); NEUT # 3.2 K/uL (1.8-7.0); NEUT % 68.7 % (50.0-75.0); RBC 3.57 Mil/uL (4.40-5.90); RED CELL DISTRIBUTION WIDTH 14.5 % (11.5-14.5); WHITE BLOOD COUNT 4.6 K/uL (4.8-10.8)
[2018-02-08 13:20] LABS: ALB/GLOB RATIO 1.1 (1.0-2.1); ALBUMIN 3.9 g/dL (3.5-5.0); ALT/SGPT 37 U/L (21-72); AST/SGOT 33 U/L (17-59); BLOOD UREA NITROGEN 20 mg/dl (9-20); CALCIUM 9.7 mg/dL (8.4-10.2); GFR NON-AFRICAN AMERICAN 54
--- NOTE | 2018-02-08 14:00 | CT ---
Date of service: 02/08/2018 PROCEDURE: CT HEAD WITHOUT CONTRAST. HISTORY: headache COMPARISON: Noncontrast head CT 03/02/2016. TECHNIQUE: Axial computed tomography images were obtained through the head/brain without intravenous contrast. Radiation dose: Total exam DLP = 817.55 mGy-cm. This CT exam was performed using one or more of the following dose reduction techniques: Automated exposure control, adjustment of the mA and/or kV according to patient size, and/or use of iterative reconstruction technique. FINDINGS: HEMORRHAGE: No intracranial hemorrhage. BRAIN: Good corticomedullary differentiation is seen. Reiterated diffuse cerebral atrophy and chronic microangiopathy. No suspicious extra-axial fluid collection is identified and the midline brain anatomy appears grossly nonfocal as imaged. No mass effect identified. VENTRICLES: Unremarkable. No hydrocephalus. CALVARIUM: Unremarkable. PARANASAL SINUSES: Unremarkable as visualized. No significant inflammatory changes. MASTOID AIR CELLS: Unremarkable as visualized. No inflammatory changes. OTHER FINDINGS: None. IMPRESSION: Unremarkable unenhanced head CT.
[2018-02-08 15:00] VITALS: BP 139/70; PULSE 64
== END 2018-02-08 15:00 | disposition home or self-care (01) ==
LOC: H.ER 12:16
DX: R51 Headache (principal)

== ENCOUNTER 2018-03-02 15:40 | Emergency (ER) | payer MEDICARE, OTHER ==
[2018-03-02 15:40] VITALS: BMI 31.6
[2018-03-02 17:09] VITALS: RESP 18
[2018-03-02] MEDS ORDERED: Morphine 4 MG/ML VIAL IVP STA (18:20)
[2018-03-02] MEDS ORDERED: Sodium Chloride 0.9% 1,000 ML IV STA (18:20)
[2018-03-02] MEDS ORDERED: Iohexol 240 (50 ml) PO ONE ×2 (18:21→18:24)
[2018-03-02 18:59] LABS: VENOUS BLOOD GAS BASE EXCESS -3.5 mmol/L (0.0-2.0); VENOUS BLOOD GAS PCO2 44 mmHg (40-60); VENOUS BLOOD GAS PO2 38 mm/Hg (30-55); VENOUS BLOOD PH 7.32 (7.32-7.43)
[2018-03-02] MEDS ORDERED: Morphine 4 MG/ML VIAL ONE (19:02)
[2018-03-02 19:03] LABS: BASO % 0.2 % (0.0-2.0); EOS % 0.1 % (0.0-4.0); HEMOGLOBIN 13.6 g/dL (12.0-18.0); LYMPH # 0.6 K/uL (1.0-4.3); LYMPH % 5.1 % (20.0-40.0); MEAN CELL VOLUME 102.5 fl (80.0-94.0); MEAN CORPUSCULAR HEMOGLOBIN 33.9 pg (27.0-31.0); MEAN PLATELET VOLUME 7.6 fl (7.2-11.7); MONO # 0.5 K/uL (0.0-0.8); MONO % 4.4 % (0.0-10.0); NEUT # 10.6 K/uL (1.8-7.0); NEUT % 90.2 % (50.0-75.0); PLATELET COUNT 298 K/uL (130-400); RBC 4.01 Mil/uL (4.40-5.90); RED CELL DISTRIBUTION WIDTH 15.3 % (11.5-14.5); WHITE BLOOD COUNT 11.8 K/uL (4.8-10.8)
[2018-03-02] MEDS ORDERED: Iohexol 240 (50 ml) ONE (19:03)
[2018-03-02 19:08] LABS: PROTHROMBIN TIME 11.1 Seconds (9.8-13.1)
[2018-03-02 19:11] LABS: PARTIAL THROMBOPLASTIN TIME 31.4 Seconds (25.6-37.1)
[2018-03-02 19:16] LABS: ALB/GLOB RATIO 1.2 (1.0-2.1); ALBUMIN 4.5 g/dL (3.5-5.0); ALT/SGPT 49 U/L (21-72); AST/SGOT 64 U/L (17-59); BLOOD UREA NITROGEN 30 mg/dl (9-20); CALCIUM 10.1 mg/dL (8.4-10.2); GFR NON-AFRICAN AMERICAN 50; LIPASE 100 U/L (23-300)
--- NOTE | 2018-03-02 19:16 | ED PDOC ---
HPI: Abdomen Time Seen by Provider: 03/02/18 17:50 Chief Complaint (Nursing): Abdominal Pain Chief Complaint (Provider): Abdominal Pain History Per: Patient History/Exam Limitations: no limitations Onset/Duration Of Symptoms: Hrs Current Symptoms Are (Timing): Still Present Additional Complaint(s): Patient is a 72 y/o male with a PMHx of hiatal hernia, HTN, hyperlipidemia, anemia, arthritis, malignancy, bronchitis, CAD, obstructive bowel, CHF, COPD, dementia, DM, diverticulitis, gastritis, leukemia, and chronic kidney disease who presents to the ED for evaluation of right sided abdominal pain, vomiting, diarrhea, and a fever, onset 4:00 today. Patient states the symptoms have come and gone. Patient reports the symptoms returned this evening prompting his ED visit. Patient denies blood in bile. PCP: Dr. Adriana Tobias Past Medical History Vital Signs: Last Vital Signs Temp 98.7 F 03/02/18 17:07 Pulse 78 03/02/18 17:07 Resp 18 03/02/18 17:07 BP 143/77 03/02/18 17:07 Pulse Ox 96 03/02/18 17:07 - Medical History PMH: Anemia, Arthritis, Bronchitis, CAD, CHF, COPD, Dementia, Diabetes, Diverticulitis, Gastritis, Hiatal Hernia, HTN, Hyperlipidemia, Malignancy (leukemia), Obstructive Bowel (small bowel), Chronic Kidney Disease Denies: Asthma, HIV, Hypercholesterolemia Other PMH: Leukemia - Surgical History Surgical History: Hernia Repair (Ventral and inguinal) - Family History Family History: States: Unknown Family Hx, Hypertension - Home Medications Home Medications: Ambulatory Orders Medication Instructions Recorded RX: Albuterol HFA [Ventolin HFA 90 2 puff IH Q4 PRN 11/06/16 mcg/actuation (8 g)] RX: Budesonide/Formoterol Fumarate 2 puff IH Q12 11/06/16 [Symbicort 160-4.5 Mcg Inhaler] RX: Dasatinib [Sprycel] 100 mg PO DAILY 11/06/16 RX: Donepezil HCl [Aricept] 5 mg PO HS 11/06/16 RX: Ferrous Sulfate [Feosol] 325 mg PO DAILY 11/06/16 RX: Folic Acid 1 mg PO DAILY 11/06/16 RX: Furosemide [Lasix] 20 mg PO Q48H 11/06/16 RX: Linaclotide [Linzess] 290 mcg PO DAILY PRN 11/06/16 RX: Losartan Potassium 50 mg PO DAILY 11/06/16 RX: Nitroglycerin [Nitrostat] 0.4 mg SL Q5MIN PRN 11/06/16 RX: Omeprazole 40 mg PO DAILY 11/06/16 Ergocalciferol (Vitamin D2) 50,000 unit PO SUN 06/13/17 [Vitamin D2] Glipizide [Glipizide ER] 5 mg PO DAILY 06/13/17 Metoprolol Tartrate [Lopressor] 25 mg PO Q12 06/13/17 RX: Aspirin [Ecotrin] 81 mg PO DAILY 06/13/17 RX: Olopatadine 0.1% Opht [Patanol 1 drop EACHEYE DAILY PRN 06/13/17 0.1% Opht Soln] Budesonide/Formoterol Fumarate 1 spray IH PRN PRN 12/03/17 [Symbicort 160-4.5 Mcg Inhaler] Multivit,Iron,Min 5/Folic Acid 1 tab PO DAILY 12/03/17 [Strovite Forte Caplet] Cyclobenzaprine [Cyclobenzaprine 10 mg PO Q8 #10 tab 12/27/17 HCl] Naproxen [Naprosyn] 500 mg PO Q12H #20 tab 12/27/17 Dicyclomine [Bentyl] 20 mg PO BID #30 tab 03/02/18 Ondansetron ODT [Zofran ODT] 4 mg PO Q8 PRN #12 odt 03/02/18 - Allergies Allergies/Adverse Reactions: Allergies Allergy/AdvReac Type Severity Reaction Status Date / Time Penicillins Allergy RASH Verified 12/27/17 16:50 Review of Systems ROS Statement: Except As Marked, All Systems Reviewed And Found Negative Constitutional: Positive for: Fever Gastrointestinal: Positive for: Vomiting, Abdominal Pain (right sided, severe), Diarrhea. Negative for: Melena, Hematochezia Physical Exam - Reviewed Nursing Documentation Reviewed: Yes Vital Signs Reviewed: Yes - Physical Exam Appears: Positive for: No Acute Distress Head Exam: Positive for: ATRAUMATIC, NORMAL INSPECTION, NORMOCEPHALIC Eye Exam: Positive for: Normal appearance Neck: Positive for: Normal Cardiovascular/Chest: Positive for: Regular Rate, Rhythm Gastrointestinal/Abdominal: Positive for: Soft, Tenderness (right sided), Guarding Extremity: Positive for: Normal ROM (Upper/Lower) Neurologic/Psych: Positive for: Alert, Oriented - Laboratory Results Result Diagrams: 03/02/18 18:50 03/02/18 18:50 Lab Results: pO2 38 mm/Hg (30-55) 03/02/18 18:54 VBG pH 7.32 (7.32-7.43) 03/02/18 18:54 VBG pCO2 44 mmHg (40-60) 03/02/18 18:54 VBG HCO3 21.4 mmol/L 03/02/18 18:54 VBG Total CO2 24.1 mmol/L (22-28) 03/02/18 18:54 VBG O2 Sat (Calc) 68.8 % (40-65) H 03/02/18 18:54 VBG Base Excess -3.5 mmol/L (0.0-2.0) L 03/02/18 18:54 VBG Potassium 4.6 mmol/L (3.6-5.2) 03/02/18 18:54 Sodium 137.0 mmol/L (132-148) 03/02/18 18:54 Chloride 106.0 mmol/L (98-107) 03/02/18 18:54 Glucose 129 mg/dL (75-110) H 03/02/18 18:54 Lactate 1.6 mmol/L (0.7-2.1) 03/02/18 18:54 FiO2 21.0 % 03/02/18 18:54 PT 11.1 Seconds (9.8-13.1) 03/02/18 18:50 INR 1.0 03/02/18 18:50 APTT 31.4 Seconds (25.6-37.1) 03/02/18 18:50 - ECG O2 Sat by Pulse Oximetry: 96 (RA) Pulse Ox Interpretation: Normal Medical Decision Making Medical Decision Making: Time: 1818 Impression: Acute Abdominal Pain Plan: Type and Screen Venous Blood Gas Shock Panel CT Abd Pelvis PO & IV Contrast CMP Lipase CBC PTT Prothrombin Time Chest portable [Rad] Morphine 1 mg iVP IV Fluids Ioxehol 50 ml PO Zofran Inj 4 mg IVP UA Time: 1900 Given Morphine [address] Abd Pelvis PO & IV Contrast. Will switch to without contrast based on BUN/Creatine. Patient is being endorsed from provider to Dr. Roy. Scribe Attestation: Documented by Marco Antonio Brown, acting as a scribe for Tonja Haq MD. Provider Scribe Attestation: All medical record entries made by the Scribe were at my direction and personally dictated by me. I have reviewed the chart and agree that the record accurately reflects my personal performance of the history, physical exam, medical decision making, and the department course for this patient. I have also personally directed, reviewed, and agree with the discharge instructions and disposition. Disposition - Clinical Impression Clinical Impression: Gastroenteritis - Patient ED Disposition Is Patient to be Admitted: Transfer of Care - Disposition Referrals: Adriana Tobias MD [Family Provider] - Disposition: Transfer of Care Disposition Time: 19:00 Condition: STABLE Prescriptions: Dicyclomine [Bentyl] 20 mg PO BID #30 tab Ondansetron ODT [Zofran ODT] 4 mg PO Q8 PRN #12 odt PRN Reason: Nausea/Vomiting Instructions: Gastroenteritis (ED) Forms: [employer] (Swedish) Print Language: SAMOAN Patient Signed Over To: George Roy
[2018-03-02 19:20] LABS: SQUAMOUS EPITHIAL 1 /hpf (0-5); URINE BACTERIA OCC (<OCC); URINE BILIRUBIN NEGATIVE (NEGATIVE); URINE BLOOD NEGATIVE (NEGATIVE); URINE CLARITY SLIGHTY-CLOUDY (Clear); URINE COLOR YELLOW (YELLOW); URINE GLUCOSE (UA) NEG (NEGATIVE); URINE LEUKOCYTE ESTERASE NEG Leu/uL (Negative); URINE PROTEIN 100 mg/dL (NEGATIVE); URINE UROBILINOGEN 0.2-1.0 mg/dL (0.2-1.0)
--- NOTE | 2018-03-02 19:38 | ED PDOC ---
- Laboratory Results Result Diagrams: 03/02/18 18:50 03/02/18 18:50 Lab Results: pO2 38 mm/Hg (30-55) 03/02/18 18:54 VBG pH 7.32 (7.32-7.43) 03/02/18 18:54 VBG pCO2 44 mmHg (40-60) 03/02/18 18:54 VBG HCO3 21.4 mmol/L 03/02/18 18:54 VBG Total CO2 24.1 mmol/L (22-28) 03/02/18 18:54 VBG O2 Sat (Calc) 68.8 % (40-65) H 03/02/18 18:54 VBG Base Excess -3.5 mmol/L (0.0-2.0) L 03/02/18 18:54 VBG Potassium 4.6 mmol/L (3.6-5.2) 03/02/18 18:54 Sodium 137.0 mmol/L (132-148) 03/02/18 18:54 Chloride 106.0 mmol/L (98-107) 03/02/18 18:54 Glucose 129 mg/dL (75-110) H 03/02/18 18:54 Lactate 1.6 mmol/L (0.7-2.1) 03/02/18 18:54 FiO2 21.0 % 03/02/18 18:54 PT 11.1 Seconds (9.8-13.1) 03/02/18 18:50 INR 1.0 03/02/18 18:50 APTT 31.4 Seconds (25.6-37.1) 03/02/18 18:50 Total Bilirubin 1.0 mg/dl (0.2-1.3) 03/02/18 18:50 AST 64 U/L (17-59) H D 03/02/18 18:50 ALT 49 U/L (21-72) 03/02/18 18:50 Alkaline Phosphatase 78 U/L (38-126) 03/02/18 18:50 Total Protein 8.3 G/DL (6.3-8.2) H 03/02/18 18:50 Albumin 4.5 g/dL (3.5-5.0) 03/02/18 18:50 Globulin 3.8 gm/dL (2.2-3.9) 03/02/18 18:50 Albumin/Globulin Ratio 1.2 (1.0-2.1) 03/02/18 18:50 Lipase 100 U/L (23-300) 03/02/18 18:50 Urine Color Yellow (YELLOW) 03/02/18 19:15 Urine Clarity Slighty-cloudy (Clear) 03/02/18 19:15 Urine pH 5.0 (5.0-8.0) 03/02/18 19:15 Ur Specific [place] 1.027 (1.003-1.030) 03/02/18 19:15 Urine Protein 100 mg/dL (NEGATIVE) 03/02/18 19:15 Urine Glucose (UA) Neg mg/dL (NEGATIVE) 03/02/18 19:15 Urine Ketones Trace mg/dL (NEGATIVE) 03/02/18 19:15 Urine Blood Negative (NEGATIVE) 03/02/18 19:15 Urine Nitrate Negative (NEGATIVE) 03/02/18 19:15 Urine Bilirubin Negative (NEGATIVE) 03/02/18 19:15 Urine Urobilinogen 0.2-1.0 mg/dL (0.2-1.0) 03/02/18 19:15 Ur Leukocyte Esterase Neg Parminder/uL (Negative) 03/02/18 19:15 Urine RBC (Auto) 2 /hpf (0-3) 03/02/18 19:15 Urine Microscopic WBC 1 /hpf (0-5) 03/02/18 19:15 Ur Squamous Epith Cells 1 /hpf (0-5) 03/02/18 19:15 Urine Bacteria Occ (<OCC) H 03/02/18 19:15 Hyaline Casts 6-10 /hpf (0-2) H 03/02/18 19:15 - ECG O2 Sat by Pulse Oximetry: 96 (RA) Medical Decision Making Medical Decision Making: Time: 1899 Patient endorsed to provider from Dr. Tonja Haq. Time: 2210 FINDINGS: LUNG BASES: The lung bases appear clear. No pleural effusions are seen. LIVER: Unremarkable. GALLBLADDER AND BILE DUCTS: The gallbladder appears within normal limits. No radioopaque gallstones are seen. No biliary ductal dilatation is evident. PANCREAS: Unremarkable. SPLEEN: Unremarkable. ADRENAL GLANDS: Unremarkable. KIDNEYS, URETERS, AND BLADDER: The kidneys appear within normal limits. There is no hydronephrosis or hydroureter. No urinary calculi are seen. 15 mm right renal cyst is seen STOMACH AND BOWEL: Unremarkable appearance of the stomach and bowel. No evidence of bowel obstruction. No evidence suggesting enteritis or colitis. APPENDIX: No evidence of acute appendicitis on CT examination. PERITONEUM: No free fluid. No free air. LYMPH NODES: No lymphadenopathy is evident. REPRODUCTIVE: Unremarkable as visualized. VASCULATURE: No evidence of abdominal aortic aneurysm. BONES: No aggressive appearing osseous lesion. No acute osseous pathology evident. IMPRESSION: No acute intra-abdominal or pelvic abnormality. Electronically signed on Mar 02, 2018 10:11:42 PM EST by: Calvin Sethi M.D., MALIHA Certified By [facility] Fellowship Trained MRI and CT Specialist Patient re-evaluated at bedside, states he is feeling better, no longer vomiting Patient is tolerating PO, appearing well Advised (using certified sales performance manager Melinda Kruse) of his results Vitals stable, well appearing upon discharge Told patient to followup with Dr. Tobias in 2 -3 days Scribe Attestation: Documented by Marco Antonio Brown, acting as a scribe for George Roy MD. Provider Scribe Attestation: All medical record entries made by the Scribe were at my direction and personally dictated by me. I have reviewed the chart and agree that the record accurately reflects my personal performance of the history, physical exam, medical decision making, and the department course for this patient. I have also personally directed, reviewed, and agree with the discharge instructions and disposition. Disposition - Clinical Impression Clinical Impression: Gastroenteritis - POA Present On Arrival: None - Disposition Referrals: Adriana Tobias MD [Family Provider] - Disposition: Routine/Home Disposition Time: 23:22 Condition: STABLE Prescriptions: Dicyclomine [Bentyl] 20 mg PO BID #30 tab Ondansetron ODT [Zofran ODT] 4 mg PO Q8 PRN #12 odt PRN Reason: Nausea/Vomiting Instructions: Gastroenteritis (ED) Forms: [facility] (Georgian) Print Language: CHILEAN
[2018-03-02 19:59] LABS: LYMPHOCYTE 3 % (20-50); MONOCYTE 5 % (0-10); NEUTROPHIL 92 % (42-75); TOTAL CELLS COUNTED 100
[2018-03-02 20:00] LABS: ANISOCYTOSIS SLIGHT; POIKILOCYTOSIS SLIGHT
[2018-03-02 20:01] LABS: OVALOCYTES SLIGHT; TEARDROP CELLS SLIGHT
[2018-03-02 20:15] LABS: PLATELET ESTIMATE NORMAL (NORMAL)
[2018-03-02] MEDS ORDERED: Iodixanol 320 MG/ML 100 ML BOTTLE IV ONE (21:26)
[2018-03-02] MEDS ORDERED: Sodium Chloride 0.9% 50 ML IV ONE (21:26)
[2018-03-02 23:03] VITALS: BP 145/72; PULSE 76; TEMP 99.2
[2018-03-02 23:22] VITALS: O2SAT 96
--- NOTE | 2018-03-03 09:14 | RAD ---
Date of service: 03/02/2018 HISTORY: possible admission COMPARISON: Portable chest 06/13/2017. FINDINGS: LUNGS: No active pulmonary disease. PLEURA: No significant pleural effusion identified, no pneumothorax apparent. CARDIOVASCULAR: Calcific atherosclerotic changes are seen related to the thoracic aorta. Stable cardiomegaly. No pulmonary vascular congestion. OSSEOUS STRUCTURES: No significant abnormalities. VISUALIZED UPPER ABDOMEN: Normal. OTHER FINDINGS: None. IMPRESSION: Stable cardiomegaly. No pulmonary vascular congestion or infiltrate in the interval.
--- NOTE | 2018-03-03 13:52 | CT ---
Date of service: 03/02/2018 PROCEDURE: CT Abdomen and Pelvis with Oral contrast. HISTORY: Abdominal pain fever, vomiting, diarrhea COMPARISON: Comparison made with prior CT scan of the abdomen and pelvis 12/03/2017.. TECHNIQUE: Contiguous axial images of the abdomen and pelvis performed following oral and intravenous injection of approximately 90 cc of Visipaque 320 contrast material. Additional 2D sagittal and coronal reformats generated. Radiation dose: Total exam DLP = 726.38 mGy-cm. This CT exam was performed using one or more of the following dose reduction techniques: Automated exposure control, adjustment of the mA and/or kV according to patient size, and/or use of iterative reconstruction technique. FINDINGS: LOWER THORAX: Heart is enlarged. No significant pericardial effusion. There is a small hiatal hernia with oral contrast material seen in the distal esophagus consistent with reflux. Mild wall thickening of the distal esophagus likely due to protrusion gastric mucosa. There are mild atelectatic changes seen in both lung bases including the lingular region. There also appears to be some minor scarring in the left lung base and right middle lobe. No effusion or basilar pneumothorax. LIVER: Liver exhibits normal size measuring approximately 17 cm in CC dimension... Suspect minimal fatty hepatic infiltration. No obvious hepatic masses collections or calcifications. Portal and splenic veins opacified. GALLBLADDER AND BILE DUCTS: Unremarkable. PANCREAS: Pancreas appears slightly atrophic and fatty replaced. SPLEEN: Unremarkable. No splenomegaly. ADRENALS: Unremarkable. KIDNEYS AND URETERS: Kidneys demonstrate symmetric size and nephrograms. No evidence of nephrolithiasis. . Mild right-sided perinephric infiltration and fluid. Small exophytic cyst lower pole right kidney measuring approximately 15 mm.. There is a small cyst measuring 11 mm upper pole left kidney. Minimal infiltration changes left perinephric fat.. Clinical correlation with urinalysis recommended to exclude UTI BLADDER: Urinary bladder is appears incompletely distended which may account for slight thick-walled appearance. Muscular hypertrophy presumably contributes.. No evidence of intraluminal urinary bladder calculi.. REPRODUCTIVE: Prostate gland measures approximately 3.8 cm in transverse dimension. Prostatic calcifications present. APPENDIX: Normal appendix. BOWEL: Evaluation of the bowel is somewhat limited due to incomplete opacification. The stomach is distended with oral contrast material some food debris liquid and air. Prominent rugal fold pattern on present of; rule out gastritis. Visualized loops of small bowel exhibit relatively normal contour and caliber. No evidence of acute mechanical small bowel obstruction. There are few scattered colonic diverticula however no radiographic evidence of acute diverticulitis. No definitive mural wall thickening. PERITONEUM: Unremarkable. No fluid collection. No free air. Small fat containing umbilical hernia. LYMPH NODES: Unremarkable. No enlarged lymph nodes. VASCULATURE: Unremarkable. No aortic aneurysm. No aortic atherosclerotic calcification or mural plaque present. BONES: Mild multilevel degenerative spondylosis of the lower thoracic and lumbar spine. There are no acute compression fractures nor retropulsed fragments. OTHER FINDINGS: None. IMPRESSION: Marked cardiomegaly. Minimal urinary bladder wall thickening likely in part due to incomplete distention however correlation with urinalysis recommended to exclude cystitis. Mild bilateral perinephric infiltration and fluid; rule out UTI. Bilateral renal cysts. Few scattered colonic diverticula without radiographic evidence of acute diverticulitis. Minimal wall thickening of the urinary bladder likely due to incomplete distention Prominent gastric rugal fold pattern of; rule out gastritis. There is a small hiatal hernia with minimal wall thickening of the distal esophagus likely due to protrusion gastric mucosa however esophagitis not excluded. Oral contrast material present within the distal esophagus likely due to reflux. Minimal fatty hepatic infiltration.
== END 2018-03-03 00:09 | disposition home or self-care (01) ==
LOC: H.ER 15:40
DX: K52.9 Noninfective gastroenteritis and colitis, unspecified (principal)
CPT/HCPCS: 71045; 74177; 80053; 81003; 82803; 83690; 85025; 85610; 85730; 86850; 86900; 96374; 96375; 99283; J2270; J2405; J7030; Q9966; Q9967